=== PATIENT | female | born 1995 | race Caucasian/White ===

== ENCOUNTER 2017-01-08 22:12 | Emergency (ER) | payer BC | END 2017-01-08 22:52 | disposition left against medical advice (07) | LOC: DL.ED 22:12 | DX: Z53.21 Procedure and treatment not carried out due to patient leaving prior to being seen by health care provider (principal) ==

== ENCOUNTER 2017-03-25 19:17 | Emergency (ER) | payer BC | END 2017-03-25 20:55 | disposition left against medical advice (07) | LOC: DL.ED 19:17 | DX: Z53.21 Procedure and treatment not carried out due to patient leaving prior to being seen by health care provider (principal) ==

== ENCOUNTER 2017-07-11 23:07 | Emergency (ER) | payer BC ==
[2017-07-11] MEDS ORDERED: Albuterol/Ipratropium 3.0-0.5 MG/3 ML Neb Soln NEB ONE (23:17)
--- NOTE | 2017-07-11 23:21 | EDM.PDOC ---
ED HPI GENERAL MEDICAL PROBLEM - General Chief Complaint: Respiratory Problem Stated Complaint: COUGH AND PRESSURE ON CHEST [id number] Time Seen by Provider: 07/11/17 23:16 Source of Information: Reports: Patient, Family (boyfriend) History Limitations: Reports: No Limitations - History of Present Illness INITIAL COMMENTS - FREE TEXT/NARRATIVE: 22 yo white female c/o chest congestion w/ cough X 4 days w/ chills Onset Date: 07/08/17 Onset Time: 12:00 Duration: Day(s): Location: Reports: Chest Severity: Moderate Improves with: Reports: None Worsens with: Reports: Breathing Associated Symptoms: Reports: Cough - Related Data Allergies Allergy/AdvReac Type Severity Reaction Status Date / Time No Known Allergies Allergy Verified 07/11/17 23:13 Home Meds: Home Meds Ibuprofen [Motrin] 400 mg PO ASDIRECTED PRN 09/06/14 [History] Past Medical History - Past Health History Medical/Surgical History: Denies Medical/Surgical History HEENT History: Reports: Impaired Vision Cardiovascular History: Reports: None Respiratory History: Reports: None Gastrointestinal History: Reports: None Genitourinary History: Reports: None BIAZZI NITRATOR OPERATOR History: Reports: Other (See Below) Other OB/BYN History: questionable Musculoskeletal History: Reports: None Other Musculoskeletal History: broken lebow rt. Neurological History: Reports: None Psychiatric History: Reports: None Endocrine/Metabolic History: Reports: None Hematologic History: Reports: None Immunologic History: Reports: None Oncologic (Cancer) History: Reports: None Dermatologic History: Reports: None - Infectious Disease History Infectious Disease History: Reports: None - Past Surgical History Head Surgeries/Procedures: Reports: None HEENT Surgical History: Reports: Tonsillectomy Social & Family History - Family History Family Medical History: Noncontributory - Tobacco Use Smoking Status *Q: Never Smoker Years of Tobacco use: 1 Used Tobacco, but Quit: No Month Tobacco Last Used: september Hand Smoke Exposure: Yes - Alcohol Use Days Per Week of Alcohol Use: 1 Number of Drinks Per Day: 2 Total Drinks Per Week: 2 - Recreational Drug Use Recreational Drug Use: No - Living Situation & Occupation Living situation: Reports: with Family Occupation: Employed ED ROS GENERAL - Review of Systems Review Of Systems: See Below Constitutional: Reports: No Symptoms HEENT: Reports: No Symptoms Respiratory: Reports: Cough Cardiovascular: Reports: No Symptoms Endocrine: Reports: No Symptoms GI/Abdominal: Reports: No Symptoms : Reports: No Symptoms Musculoskeletal: Reports: No Symptoms Skin: Reports: No Symptoms Neurological: Reports: No Symptoms Psychiatric: Reports: No Symptoms Hematologic/Lymphatic: Reports: No Symptoms Immunologic: Reports: No Symptoms ED EXAM, GENERAL - Physical Exam Exam: See Below Exam Limited By: No Limitations General Appearance: Alert Ears: Normal External Exam Nose: Normal Inspection Throat/Mouth: Normal Inspection Head: Atraumatic Neck: Normal Inspection Respiratory/Chest: No Respiratory Distress, Rhonchi Cardiovascular: Normal Peripheral Pulses Extremities: Normal Inspection Neurological: Alert Psychiatric: Normal Affect Skin Exam: Warm Lymphatic: No Adenopathy Course - Vital Signs Last Recorded V/S: Last Vital Signs Temp 36.2 C 07/11/17 23:08 Pulse 92 07/11/17 23:28 Resp 18 07/11/17 23:28 BP 115/72 07/11/17 23:28 Pulse Ox 100 07/11/17 23:28 - Orders/Labs/Meds Orders: Active Orders 24 hr Category Date Time Status RT Aerosol Therapy [RC] ASDIRECTED Care 07/11/17 23:17 Active Labs: Laboratory Tests 07/11/17 07/11/17 07/11/17 Range/Units 23:14 23:25 23:25 WBC 7.8 (5.0-10.0) 10^3/uL RBC 4.47 (4.2-5.4) 10^6/uL Hgb 13.1 (12.0-16.0) g/dL Hct 39.8 (37.0-47.0) % MCV 89.0 (80-100) fL MCH 29.3 (27.0-34.0) pg MCHC 32.9 L (33.0-35.0) g/dL Plt Count 345 (150-450) 10^3/uL Neut % (Auto) 63.3 (42.2-75.2) % Lymph % (Auto) 24.9 (20.5-50.1) % [place] % (Auto) 9.1 H (2-8) % Eos % (Auto) 2.4 (1.0-3.0) % Baso % (Auto) 0.3 (0.0-1.0) % Lactic Acid 0.5 (0.5-2.2) mmol/L Urine HCG, Qual Negative Meds: Medications Discontinued Medications Generic Name Dose Route Start Last Admin Trade Name Effie PRN Reason Stop Dose Admin Albuterol/Ipratropium 3 ml 07/11/17 23:17 07/11/17 23:23 Duoneb 3.0-0.5 Mg/3 Ml NEB 07/11/17 23:18 3 ml ONETIME ONE Administration Departure - Departure Time of Disposition: 00:01 Disposition: Home, Self-Care 01 Condition: Good Clinical Impression: URI (upper respiratory infection) Qualifiers: URI type: unspecified viral URI Qualified Code(s): J06.9 - Acute upper respiratory infection, unspecified; B97.89 - Other viral agents as the cause of diseases classified elsewhere; B97.89 - Other viral agents as the cause of diseases classified elsewhere - Discharge Information Instructions: Upper Respiratory Infection, Adult, Lggu-[id number] Forms: ED Department Discharge Additional Instructions: Rest Increase intake of Fluids ( Juice / Water ) Take Medication as directed: PHENERGAN PLAIN 2TSP q 4HRS. # 4oz. as needed PRO AIR MDI 2 puffs QID as needed #1 Try Vics Vaporizer in bedroom F/U w/ PCP - My Orders Last 24 Hours: My Active Orders 07/11/17 23:17 RT Aerosol Therapy [RC] ASDIRECTED - Assessment/Plan Last 24 Hours: My Active Orders 07/11/17 23:17 RT Aerosol Therapy [RC] ASDIRECTED
[2017-07-11 23:31] VITALS: BP 115/72
== END 2017-07-12 00:07 | disposition home or self-care (01) ==
LOC: DL.ED 23:07
DX: J06.9 Acute upper respiratory infection, unspecified (principal); Z77.22 Contact with and (suspected) exposure to environmental tobacco smoke (acute) (chronic)
CPT/HCPCS: 36415; 71020; 81025; 83605; 85025; 94640; 99284

== ENCOUNTER 2018-10-09 22:17 | Emergency (ER) | payer BC ==
[2018-10-09 22:26] VITALS: BP 131/64
[2018-10-09] MEDS ORDERED: Sodium Chloride 0.9% 1,000 ML IV ONE (22:29)
--- NOTE | 2018-10-09 22:40 | EDM.PDOC ---
ED HPI GENERAL MEDICAL PROBLEM - General Chief Complaint: Gastrointestinal Problem Stated Complaint: THROWING UP BLOOD 20 WEEKS PREGNENT Time Seen by Provider: 10/09/18 22:32 Source of Information: Reports: Patient History Limitations: Reports: No Limitations - History of Present Illness INITIAL COMMENTS - FREE TEXT/NARRATIVE: This 23 yo female patient reports to the ED due to having 1 episode of nausea and vomiting. The patient reports there was bright red blood in the vomit. The patient is currently 20 weeks into her . The patient reports no nausea at this time. The patient reports she normally feels fine after she throws up. The patient states she has not been ill lately. The patient reports she did eat [employer] about 2 hours prior to throwing up. Onset: Today Duration: Minutes:, Resolved Prior to Arrival Location: Reports: Other Quality: Reports: Other Severity: Mild Improves with: Reports: None Worsens with: Reports: None Associated Symptoms: Reports: Nausea/Vomiting (x1) - Related Data Allergies Allergy/AdvReac Type Severity Reaction Status Date / Time No Known Allergies Allergy Verified 10/09/18 22:21 Home Meds: Home Meds Levothyroxine [Synthroid] 50 mcg PO ACBREAKFAST 09/07/18 [History] Vit #108/Iron/FA [ One Tablet] 1 each PO DAILY 09/07/18 [ History] Past Medical History - Past Health History Medical/Surgical History: Denies Medical/Surgical History HEENT History: Reports: Impaired Vision Cardiovascular History: Reports: None Respiratory History: Reports: None Gastrointestinal History: Reports: None Genitourinary History: Reports: None GATE OPERATOR History: Reports: Endometriosis, Other GATE OPERATOR History: questionable Musculoskeletal History: Reports: None Other Musculoskeletal History: broken lebow rt. Neurological History: Reports: None Psychiatric History: Reports: None Endocrine/Metabolic History: Reports: Hypothyroidism Hematologic History: Reports: None Immunologic History: Reports: None Oncologic (Cancer) History: Reports: None Dermatologic History: Reports: None - Infectious Disease History Infectious Disease History: Reports: None - Past Surgical History Head Surgeries/Procedures: Reports: None HEENT Surgical History: Reports: Adenoidectomy, Tonsillectomy Social & Family History - Family History Family Medical History: Noncontributory - Tobacco Use Smoking Status *Q: Never Smoker - Caffeine Use Caffeine Use: Reports: Soda - Recreational Drug Use Recreational Drug Use: No - Living Situation & Occupation Living situation: Reports: with Family Occupation: Employed ED ROS GENERAL - Review of Systems Review Of Systems: ROS reveals no pertinent complaints other than HPI. ED EXAM, GI/ABD - Physical Exam Exam: See Below Exam Limited By: No Limitations General Appearance: Alert, WD/WN, No Apparent Distress, Obese Eyes: Bilateral: Normal Appearance, EOMI Ears: Normal External Exam, Normal Canal, Hearing Grossly Normal, Normal TMs Nose: Normal Inspection, Normal Mucosa, No Blood Throat/Mouth: Normal Inspection, Normal Lips, Normal Teeth, Normal Gums, Normal Oropharynx, Normal Voice, No Airway Compromise Head: Atraumatic, Normocephalic Neck: Normal Inspection, Supple, Non-Tender, Full Range of Motion Respiratory/Chest: No Respiratory Distress, Lungs Clear, Normal Breath Sounds, No Accessory Muscle Use, Chest Non-Tender Cardiovascular: Normal Peripheral Pulses, Regular Rate, Rhythm, No Edema, No Gallop, No JVD, No Murmur, No Rub GI/Abdominal Exam: Normal Bowel Sounds, Soft, Non-Tender, No Organomegaly, No Distention, No Abnormal Bruit, No Mass, Pelvis Stable (Female) Exam: Deferred Rectal (Female) Exam: Deferred Back Exam: Normal Inspection, Full Range of Motion, NT Extremities: Normal Inspection, Normal Range of Motion, Non-Tender, Normal Capillary Refill, No Pedal Edema Neurological: Alert, Oriented, CN II-XII Intact, Normal Cognition, Normal Gait, Normal Reflexes, No Motor/Sensory Deficits Psychiatric: Normal Affect, Normal Mood Skin Exam: Warm, Dry, Intact, Normal Color, No Rash Lymphatic: No Adenopathy Course - Vital Signs Last Recorded V/S: Last Vital Signs Temp 36.1 C 10/09/18 22:22 Pulse 90 10/09/18 22:22 Resp 18 10/09/18 22:22 BP 131/64 10/09/18 22:22 Pulse Ox 100 10/09/18 22:22 - Orders/Labs/Meds Orders: Active Orders 24 hr Category Date Time Status CULTURE URINE [RM] Urgent Lab 10/09/18 22:33 Received Sodium Chloride 0.9% [Normal Saline] 1,000 ml Med 10/09/18 22:29 Active IV .BOLUS Medication Orders Sodium Chloride (Normal Saline) 1,000 mls @ 999 mls/hr IV .BOLUS ONE Stop: 10/09/18 23:29 Last Admin: 10/09/18 22:43 Dose: 999 mls/hr Labs: Laboratory Tests 10/09/18 10/09/18 10/09/18 Range/Units 22:33 22:41 22:41 WBC 9.7 (5.0-10.0) 10^3/uL RBC 3.40 L (4.2-5.4) 10^6/uL Hgb 10.5 L D (12.0-16.0) g/dL Hct 31.2 L (37.0-47.0) % MCV 91.8 D (80-100) fL MCH 30.9 (27.0-34.0) pg MCHC 33.7 (33.0-35.0) g/dL Plt Count 310 (150-450) 10^3/uL Neut % (Auto) 73.1 (42.2-75.2) % Lymph % (Auto) 18.6 L (20.5-50.1) % [place] % (Auto) 6.7 (2-8) % Eos % (Auto) 1.5 (1.0-3.0) % Baso % (Auto) 0.1 (0.0-1.0) % Sodium (135-145) mmol/L Potassium (3.6-5.0) mmol/L Chloride (101-111) mmol/L Carbon Dioxide (21.0-31.0) mmol/L Anion Gap BUN (7-18) mg/dL Creatinine (0.6-1.3) mg/dL Est Cr Clr Drug Dosing mL/min Estimated GFR (MDRD) BUN/Creatinine Ratio Glucose (74-105) mg/dL Calcium (8.4-10.2) mg/dl Total Bilirubin (0.2-1.0) mg/dL AST (10-42) IU/L ALT (10-60) IU/L Alkaline Phosphatase (42-121) IU/L Total Protein (6.7-8.2) g/dl Albumin (3.2-5.5) g/dl Globulin Albumin/Globulin Ratio HCG, Quant > 1397.0 Beta HCG, Quant 34464 mIU/ml Urine Color Yellow (YELLOW) Urine Appearance Cloudy (CLEAR) Urine pH 6.0 (5.0-9.0) Ur Specific [place] >= 1.030 (1.005-1.030) Urine Protein Trace H (NEGATIVE) Urine Glucose (UA) Negative (NEGATIVE) Urine Ketones Trace H (NEGATIVE) Urine Occult Blood Negative (NEGATIVE) Urine Nitrite Negative (NEGATIVE) Urine Bilirubin Negative (NEGATIVE) Urine Urobilinogen 2.0 H (0.2-1.0) mg/dL Ur Leukocyte Esterase Trace H (NEGATIVE) Urine RBC 0-5 /HPF Urine WBC 10-20 H (0-5/HPF) /HPF Ur Epithelial Cells Many H /HPF Amorphous Sediment Few (0/HPF) /HPF Urine Bacteria Many H (0-FEW/HPF) /HPF Urine Mucus Few H /LPF 10/09/18 Range/Units 22:41 WBC (5.0-10.0) 10^3/uL RBC (4.2-5.4) 10^6/uL Hgb (12.0-16.0) g/dL Hct (37.0-47.0) % MCV (80-100) fL MCH (27.0-34.0) pg MCHC (33.0-35.0) g/dL Plt Count (150-450) 10^3/uL Neut % (Auto) (42.2-75.2) % Lymph % (Auto) (20.5-50.1) % [place] % (Auto) (2-8) % Eos % (Auto) (1.0-3.0) % Baso % (Auto) (0.0-1.0) % Sodium 135 (135-145) mmol/L Potassium 3.5 L (3.6-5.0) mmol/L Chloride 105 (101-111) mmol/L Carbon Dioxide 21.0 (21.0-31.0) mmol/L Anion Gap 12.5 BUN 14 (7-18) mg/dL Creatinine 0.5 L (0.6-1.3) mg/dL Est Cr Clr Drug Dosing 151.11 mL/min Estimated GFR (MDRD) > 60 BUN/Creatinine Ratio 28.00 Glucose 92 (74-105) mg/dL Calcium 8.6 (8.4-10.2) mg/dl Total Bilirubin 0.4 (0.2-1.0) mg/dL AST 18 (10-42) IU/L ALT 20 (10-60) IU/L Alkaline Phosphatase 52 (42-121) IU/L Total Protein 6.6 L (6.7-8.2) g/dl Albumin 3.2 (3.2-5.5) g/dl Globulin 3.4 Albumin/Globulin Ratio 0.94 HCG, Quant Beta HCG, Quant mIU/ml Urine Color (YELLOW) Urine Appearance (CLEAR) Urine pH (5.0-9.0) Ur Specific [place] (1.005-1.030) Urine Protein (NEGATIVE) Urine Glucose (UA) (NEGATIVE) Urine Ketones (NEGATIVE) Urine Occult Blood (NEGATIVE) Urine Nitrite (NEGATIVE) Urine Bilirubin (NEGATIVE) Urine Urobilinogen (0.2-1.0) mg/dL Ur Leukocyte Esterase (NEGATIVE) Urine RBC /HPF Urine WBC (0-5/HPF) /HPF Ur Epithelial Cells /HPF Amorphous Sediment (0/HPF) /HPF Urine Bacteria (0-FEW/HPF) /HPF Urine Mucus /LPF Meds: Medications Generic Name Dose Route Start Last Admin Trade Name Freq PRN Reason Stop Dose Admin Sodium Chloride 1,000 mls @ 999 mls/hr 10/09/18 22:29 10/09/18 22:43 Normal Saline IV 10/09/18 23:29 999 mls/hr .BOLUS ONE Administration Departure - Departure Time of Disposition: 23:28 Disposition: Home, Self-Care 01 Condition: Fair Clinical Impression: Gastroenteritis - Discharge Information *PRESCRIPTION DRUG MONITORING PROGRAM REVIEWED*: Not Applicable *COPY OF PRESCRIPTION DRUG MONITORING REPORT IN PATIENT NAIF: Not Applicable Instructions: Viral Gastroenteritis, Adult, [id number] Forms: ED Department Discharge Care Plan Goals: The patient was advised of the examination and lab results during the visit. The patient was advised that her hemoglobin was a little low at this time. The patient was encouraged to follow-up with her primary care facility for continued monitoring. If the patient has any additional symptoms or concerns, the patient should either return to the emergency department or visit her primary care facility. - My Orders Last 24 Hours: My Active Orders 10/09/18 22:29 Sodium Chloride 0.9% [Normal Saline] 1,000 ml IV .BOLUS 10/09/18 22:33 CULTURE URINE [RM] Urgent - Assessment/Plan Last 24 Hours: My Active Orders 10/09/18 22:29 Sodium Chloride 0.9% [Normal Saline] 1,000 ml IV .BOLUS 10/09/18 22:33 CULTURE URINE [] Urgent
[2018-10-09 23:17] LABS: ANION GAP 12.5; CHLORIDE,CL 105 mmol/L (101-111); SODIUM,NA 135 mmol/L (135-145)
== END 2018-10-09 23:33 | disposition home or self-care (01) ==
LOC: DL.ED 22:17
DX: K52.9 Noninfective gastroenteritis and colitis, unspecified (principal)
CPT/HCPCS: 36415; 80053; 81001; 84702; 85025; 87086; 96360; 99284; J7030

== ENCOUNTER 2019-02-22 10:45 | Inpatient (IN) | payer BC, MEDICAID ==
[2019-02-22] MEDS ORDERED: Misoprostol 50 MCG (1/2 of 100 MCG) Tab VAG ONE (12:07)
[2019-02-22] MEDS ORDERED: Lactated Ringers 500 ML IV ONE (12:41)
[2019-02-22] MEDS ORDERED: Ondansetron 4 MG/2 ML SDV IV PRN (12:41)
[2019-02-22] MEDS ORDERED: Methylergonovine 0.2 MG/1 ML Amp IM PRN (12:41)
[2019-02-22] MEDS ORDERED: Carboprost Tromethamine 250 MCG/1 ML Amp IM PRN (12:41)
[2019-02-22] MEDS ORDERED: Promethazine 25 MG/ML SDV IM PRN (12:41)
[2019-02-22] MEDS ORDERED: Tranexamic Acid 1,000 MG in Sodium Chloride 0.9% 100 ML IV PRN (12:41)
[2019-02-22] MEDS ORDERED: Sodium Chloride 0.9% 10 ML Syringe FLUSH PRN (12:41)
[2019-02-22] MEDS ORDERED: fentaNYL 100 MCG/2 ML SDV IVPUSH PRN (12:41)
[2019-02-22] MEDS ORDERED: Lidocaine 1% 30 ML SDV INJECT PRN (12:41)
[2019-02-22] MEDS ORDERED: Misoprostol 400 MCG (4 X 100 MCG TAB) RECTAL PRN (12:41)
[2019-02-22] MEDS ORDERED: Misoprostol 25 MCG (1/4 of 100 MCG) Tab PO ONE (12:45)
[2019-02-22] MEDS: Misoprostol 25 MCG (1/4 of 100 MCG) Tab VAG PRN ×2 (13:16→17:23)
--- NOTE | 2019-02-22 17:28 | HP ---
CHIEF COMPLAINT: Nausea, increased edema. HISTORY OF PRESENT ILLNESS: The patient is a 24-year-old 1, para 0, currently at 39 and 3/7th weeks' gestation based on last menstrual period confirmed with ultrasound, who presented to the clinic today complaining of nausea for 3 days, having difficulty keeping much of anything down, noticed increased swelling when she is up, but this does resolve when she lays on her left side and elevates her feet. Denies any headaches, chest pain, shortness of breath, right upper quadrant pain, decreased urine output, or blurry vision. She has been very concerned often on this with potential of preeclampsia and now is presenting with some increased symptoms. Denies any regular contractions. Has had good movement. No further vaginal bleeding or leakage of fluid. Previously, she had some small amounts of mucousy discharge. PAST MEDICAL HISTORY: 1. Adolescent dysmenorrhea, on control pills for short time. 2. Supracondylar fracture, left elbow, in 2001. 3. Depression, starting in 2010. 4. IUD, inserted, replaced, and then removed because of side effects. 5. Tattoo on her neck and ears are pierced. No IV drug use or transfusions. 6. Vitamin D deficiency. OBSTETRICAL HISTORY: This is her first . labs overall have been good and unremarkable. Blood type is AB positive. She is rubella immune. Hepatitis B, hepatitis C, HIV, gonorrhea and chlamydia were all negative. Wet prep was negative. TSH has been consistent with subclinical hypothyroidism. Most recent TSH 3.99 at which time her Levothroid was increased. She is group B strep negative. She passed her 1-hour glucose tolerance test with a score of 107. ULTRASOUNDS: First one performed 11 weeks' 5 days' gestation at [facility], single live intrauterine consistent with last menstrual period. Next ultrasound performed baby measured 20 weeks 2 days. This was within 4 days of her working due date. Baby was breech, anterior placenta, normal anatomy, and growth at the 64.9th percentile. PAST SURGICAL HISTORY: Tonsillectomy and adenoidectomy in 1996, PE tube placement in 1996 and PE tube removal in 2002 with tympanic membrane patching on the right. FAMILY HISTORY: Mother is alive with heart disease, high cholesterol, hypertension, and sleep apnea. Father is alive with hypertension, high cholesterol, diabetes, and heart disease. She has 2 half sisters with no known diseases. She has a brother with hypertension. Both paternal grandparents have had heart attacks. Both maternal grandparents are alive and well. SOCIAL HISTORY: The patient has never smoked. She is working at [employer] and at [employer]. Her works at the [employer]. His name is Sherif and he has alopecia areata as well as some sort of an autoimmune disease and his sister has a history of kidney infections as a child. His brother is healthy. His father has asthma, severe anxiety, sleep apnea, and his mother had thyroid disease. Otherwise, their family histories are reportedly negative. Mother does plan on . REVIEW OF SYSTEMS: As outlined above in the history of present illness. PHYSICAL EXAMINATION: Vital Signs: At the clinic today, the patient's blood pressure is 146/84, recheck 123/105, currently admission blood pressure 140/77, recheck after resting 134/67; pulse of 75; she is afebrile; temperature is 98.2; respiratory rate is 20. HEENT: Head is normocephalic, atraumatic. Mouth, mucous membranes are pink and moist. Thick calculus on the teeth. Gingiva are inflamed and irritated. Oropharynx is clear. Neck: Supple without adenopathy. Heart: Regular without murmur. Lungs: Clear to auscultation bilaterally. Abdomen: Gravid, soft, nontender. Baby palpates at vertex. Fundal height of 38 cm. heart tones tracing at 130 beats per minute at baseline. Moderate [id number]-[id number] variability. Limited accelerations. No decelerations noted. [place] shows no uterine activity. Extremities: 1+ edema. No erythema or tenderness. Reflexes are 2+ and equal. There is no clonus. Skin: Warm and dry. Appropriate for race. Neurological: No focal deficits. LABORATORY DATA: Labs performed today at the clinic: Protein-creatinine ratio of 0.3. LDH 160. BUN 10, creatinine 0.8, AST 15, ALT 16. CBC, hemoglobin was 13.4, hematocrit 39, platelets 319, overall normal. TSH is pending. ASSESSMENT: 1. A 39 and 3/7th weeks' intrauterine . 2. Mild preeclampsia, suspected to be early in its development. 3. Obesity. 4. Blood type AB positive. Rubella immune. Group B strep negative. 5. History of urinary tract infection in the third trimester. 6. Subclinical hypothyroidism. PLAN: The patient has been admitted to the hospital for Cytotec induction primarily because baby's tracing is reassuring but nonreactive and mother is displaying symptoms of mild preeclampsia despite blood pressure is not remaining consistently elevated. Discussed risks and benefits of induction of labor for these indications with the patient and her and they agreed to proceed. First dose of Cytotec has been placed and she is tolerating things well. Discussed with her potential for need of section and she was verbally consented for that procedure as well after discussion of indications, risks, benefits, and alternatives and although this is something we would want to avoid, she understands it may be necessary if any maternal or factors should develop. [facility] /[id number]
[2019-02-22] MEDS ORDERED: hydrOXYzine HCl 25 MG Tab PO PRN (20:10)
[2019-02-23] MEDS ORDERED: hydrOXYzine HCl 25 MG Tab PO ONE (00:23)
[2019-02-23] MEDS: Lactated Ringers 1,000 ML IV SCH ×4 (00:38→15:08)
[2019-02-23] MEDS: Oxytocin/Normal Saline 30 UNIT/500 ML BAG IV SCH ×2 (00:38→11:25)
[2019-02-23] MEDS: Acetaminophen 325 MG Tab PO PRN (00:46)
[2019-02-23] MEDS ORDERED: fentaNYL 100 MCG/2 ML SDV ONE (07:46)
[2019-02-23] MEDS ORDERED: EPINEPHrine 1 MG/ML SDV ONE (07:46)
[2019-02-23] MEDS ORDERED: Sodium Bicarbonate 4.2% 2.5 MEQ/5 ML SDV ONE (07:47)
--- NOTE | 2019-02-23 08:13 | PCM.SN ---
- Free Text/Narrative Note: Intrathecal. Sitting position, sterile prep and drape. 1% lidocaine w bicarb for skinwheal to L2 L3 interspace x 2, Introducer and 24 ga Pencan x2. Pos CSF, neg heme, neg parasthesia, 0.1 ml PF 1:1000 Epi, 20 mcg sufenta, 30 mcg pf fentanyl, 0.4 ml pf ns and 6 mg of 0.75% pf bupivacaine injected after CSF aspiration. Pt to L lateral position. Procedure time 0750 to 0820
[2019-02-23] MEDS ORDERED: Simethicone 80 MG Tab.Chew PO PRN (10:04)
[2019-02-23] MEDS ORDERED: Benzocaine/Menthol 20%-0.5% Spray 56 GM Canister TOP PRN (10:04)
[2019-02-23] MEDS: Ibuprofen 800 MG Tab PO PRN (14:58)
--- NOTE | 2019-02-23 16:05 | DEL ---
DATE: 02/23/2019 PREPROCEDURE DIAGNOSES: 1. 39 and 4/7 weeks' intrauterine . 2. Mild preeclampsia. 3. Obesity. 4. Blood type A positive, rubella immune, group B Strep negative. 5. Subclinical hypothyroidism. 6. History of urinary tract infection in the third trimester. 7. Meconium-stained fluid. 8. bradycardia. POSTPROCEDURE DIAGNOSES: 1. 39 and 4/7 weeks' intrauterine . 2. Mild preeclampsia. 3. Obesity. 4. Blood type A positive, rubella immune, group B Strep negative. 5. Subclinical hypothyroidism. 6. History of urinary tract infection in the third trimester. 7. Meconium-stained fluid. 8. bradycardia. 9. Status post vacuum-assisted vaginal delivery. 10.Repair of second-degree vaginal laceration. 11.Uterine atony, resolved with increased Pitocin and bimanual massage of the uterus. BRIEF HISTORY: A 24-year-old, 1, para 0 female patient with the above- listed diagnoses, presented to the hospital yesterday for further evaluation of her mild preeclampsia and was admitted for Cytotec induction followed by Pitocin. Blood pressures were well controlled when she was at rest, but would go up any time she was allowed to ambulate. See admission history and physical for additional details. After the first 2 doses of Cytotec, she was natalie frequently enough that she needed to be followed with IV Pitocin. After reaching 5 cm dilated, she had spontaneous rupture of membranes around 6:00 in the morning. After that, intrathecal was administered at around 8:00 a.m. and shortly thereafter, she had developed some bradycardia and was found to be complete. I was called for delivery, and we had her pushing on her side in order to maintain, baby's heart rate recovery between contractions. With contractions and pushing, baby's heart rate would drop down into the 70s and 60s and was difficult to auscultate. When the patient was at +3 station, the heart tones were inadequately auscultated and with the known bradycardia, a decision was made to proceed with vacuum-assisted vaginal delivery. With first vacuum pull, there was 1 pop-off. Second vacuum pull resulted in delivery of the baby at 9:33 a.m. Baby did well with just stimulation and bulb suctioning and was quickly taken to the warmer. After the 3-vessel umbilical cord was doubly clamped and cut, cord blood sample was obtained and placenta delivered by gentle cord traction and concomitant uterine massage in less than 5 minutes. The bleeding from the uterus was somewhat brisk, so we turned the Pitocin up to 999 and bimanual massage was also administered with excellent control of her blood flow. Labia and vagina were inspected, and she had some anterior abrasions, which did not need any repair. She had a second-degree laceration, which was repaired with 3-0 Vicryl in the usual fashion and a good cosmetic result. Bleeding remained hemostatic, and the patient had tolerated the overall procedure well. Delivery itself with vacuum in place, the mother delivered a viable male infant over an intact perineum in the GIL position. was laid on the bed and mouth and nose bulb-suctioned, and he was dried and stimulated, and then taken over to the warmer after the 3-vessel umbilical cord was doubly clamped and cut due to appearing as though he may need more advanced resuscitation, but did perk up within the first 30 seconds. Vacuum Details: Alternate labor strategies were considered. The operating room was not immediately available. Second physician was aware of the patient being here and was ready to assist. The vacuum was needed to shorten the second stage of labor for benefit because of bradycardia and lack of auscultation of heart tones. The patient had been appropriately prepared. We had discussed with her the risks, benefits, and alternatives of vacuum extraction including, but not limited to increased risk of injury to her and the baby, potential for shoulder dystocia, potential for additional complications and other injuries, and she had verbally consented and agreed to proceed. Anesthesia was adequate, and she had only had her intrathecal placed about an hour and a half before. Her perineum was still numb. There was a high probability of success. Infant's size was estimated to be appropriate. She had an adequate pelvis and baby was in the OA position at 3+ station. Maximum number of pop-offs had been predetermined, we only had 1 during the actual delivery. Maximum pressure was in the green zone between 450 and 600 mmHg. Total application time was only about 3 minutes essentially through 1-1/2 contractions. Type of vacuum used was Kiwi. Exit strategy would have been made available, Anesthesia was in-house, but working on a different surgical case. The operating room was open. My other assist was available. Given the anesthesia being adequate for the intrathecal, we likely would have been able to proceed with a without additional anesthesia or possibly just some additional local, and there was no opportunity to wait because of the compromise anticipated. FINDINGS: Viable male infant, scores of 8 and 9, weight 7 pounds 7 ounces. Second-degree laceration, repaired. COMPLICATIONS: None. ESTIMATED BLOOD LOSS: 350 mL. DISPOSITION: Mother and baby to stay in the room and initiate at this time. [facility] /[id number]
[2019-02-24] MEDS: Ferrous Sulfate 325 MG Tab PO SCH (08:28)
[2019-02-24] MEDS: Prenatal Multivitamin with Calcium/Folic Acid/Iron Tab PO SCH (08:29)
[2019-02-24] MEDS: Ibuprofen 800 MG Tab PO PRN ×2 (08:30→17:38)
[2019-02-24] MEDS: Docusate Sodium 100 MG Cap PO PRN ×2 (08:30→21:07)
[2019-02-24] MEDS: Levothyroxine 125 MCG Tab PO SCH (08:43)
--- NOTE | 2019-02-24 09:03 | PN ---
DATE: 02/24/2019 SUBJECTIVE: Post delivery day #1. The patient is doing well. She is ambulating . She is voiding and passing flatus. Reporting some increased perineal pressure and pain at the repair site. seems to be going well. Otherwise, denies any problems. No preeclamptic symptoms. Blood flow has been appropriate. Uterus has remained firm per nurse's report. Mother denies any other issues. OBJECTIVE: Vital Signs: Temperature 99.3, pulse 83, blood pressure 123/68, and respiratory rate of 18. Heart: Regular without murmurs. Lungs: Clear to auscultation bilaterally. Abdomen: Soft and nontender. Fundus is firm and below the umbilicus. Extremities: Only trace edema at this time. No erythema or tenderness. LABS: Today's CBC is currently pending. ASSESSMENT: 1. Post vaginal delivery day #1. 2. Status post second-degree laceration repair. 3. Obesity. 4. Subclinical hypothyroidism with currently elevated TSH, and levothyroxine needs to be increased. PLAN: Anticipate continued normal cares. Continue to monitor for late preeclampsia symptoms and continue with assistance and any other needs. Anticipate discharge home tomorrow. Dr. Mas will see her tomorrow in my absence. [facility] /[id number]
[2019-02-24] MEDS ORDERED: Sodium Bicarbonate 4.2% 2.5 MEQ/5 ML SDV ONE (13:13)
[2019-02-24] MEDS ORDERED: EPINEPHrine 1 MG/ML SDV IV ONE (13:13)
[2019-02-24] MEDS ORDERED: fentaNYL 100 MCG/2 ML SDV ITHECAL ONE (13:13)
[2019-02-24] MEDS: Acetaminophen 325 MG Tab PO PRN ×2 (15:48→21:07)
[2019-02-25] MEDS: Ibuprofen 800 MG Tab PO PRN ×2 (01:11→08:30)
[2019-02-25] MEDS: Acetaminophen 325 MG Tab PO PRN ×2 (01:12→05:41)
[2019-02-25] MEDS: Levothyroxine 125 MCG Tab PO SCH (05:41)
[2019-02-25] MEDS: Prenatal Multivitamin with Calcium/Folic Acid/Iron Tab PO SCH (08:30)
[2019-02-25] MEDS: Ferrous Sulfate 325 MG Tab PO SCH (08:30)
[2019-02-25] MEDS: Docusate Sodium 100 MG Cap PO PRN (08:30)
[2019-02-25 08:36] VITALS: BP 130/72
--- NOTE | 2019-02-25 11:12 | PN ---
DATE: 02/25/2019 SUBJECTIVE: The patient is day #2 from a vacuum-assisted vaginal delivery. She did have mild preeclampsia. Protein creatinine ratio is 0.3. She also has hypothyroidism. This is her first baby. She and baby are both doing well. She states her vaginal bleeding has decreased significantly. PHYSICAL EXAMINATION: Vital Signs: The patient is afebrile. Heart rate 69 to 87, blood pressure 122 to 123/65 to 72, respiratory rate 18, O2 sat 100%. Genitourinary: The patient's fundus was firm, below the umbilicus. Extremities: Have no tenderness. No edema. LABORATORY DATA: The patient's blood type is AB positive. She is rubella immune. Hemoglobin prior to delivery was 13.4. CBC showed a hemoglobin of 10.2, platelets are normal at 218, and white count was normal at 9.7. ASSESSMENT AND PLAN: day #2, status post vacuum-assisted vaginal delivery with resolved mild preeclampsia. We will discharge this patient to home. She will follow up with her primary in 6 weeks for 6-week visit. Also continue her current Synthroid, and likely at her 6-week visit, another TSH will be checked. [facility] /[id number]
[2019-02-25] MEDS ORDERED: Ferrous Sulfate 325 MG Tab PO SCH (18:00)
[2019-02-26] MEDS ORDERED: Levothyroxine 100 MCG Tab PO SCH (06:00)
[2019-02-26] MEDS ORDERED: Prenatal Multivitamin with Calcium/Folic Acid/Iron Tab PO SCH (09:00)
== END 2019-02-25 10:49 | disposition home or self-care (01) | DRG 560 ==
LOC: DL.OBCHECK 10:45 → DL.OB 12:05 → UNDOADMOB 12:05 → DL.OB 02-23 09:33 → OBSVTOIN 02-23 09:33
PROVIDERS: ADMIT Family Medicine; ATTEND Family Medicine
PROC: 10D07Z6 Extraction of Products of Conception, Vacuum, Via Natural or Artificial Opening (ICD-10-PCS; principal; 2019-02-23)
PROC: 3E0P7VZ Introduction of Hormone into Female Reproductive, Via Natural or Artificial Opening (ICD-10-PCS; 2019-02-23)
PROC: 3E0R3BZ Introduction of Anesthetic Agent into Spinal Canal, Percutaneous Approach (ICD-10-PCS; 2019-02-23)
PROC: 0KQM0ZZ Repair Perineum Muscle, Open Approach (ICD-10-PCS; 2019-02-23)
DX: O14.04 Mild to moderate pre-eclampsia, complicating childbirth (principal); O99.214 Obesity complicating childbirth; E66.9 Obesity, unspecified; E02 Subclinical iodine-deficiency hypothyroidism; O99.284 Endocrine, nutritional and metabolic diseases complicating childbirth; O70.1 Second degree perineal laceration during delivery; Z3A.39 39 weeks gestation of pregnancy; Z37.0 Single live birth; O77.0 Labor and delivery complicated by meconium in amniotic fluid
CPT/HCPCS: 36415; 59025; 59409; 85027; A9270-GY; J0171; J2405; J2590; J3010; J7120

== ENCOUNTER 2019-03-01 22:36 | Observation (INO) | payer BC, MEDICAID ==
[2019-03-01 23:27] LABS: ANION GAP 14.6; CHLORIDE,CL 107 mmol/L (101-111); SODIUM,NA 137 mmol/L (135-145)
[2019-03-01] MEDS ORDERED: hydrALAZINE 20 MG/ML SDV IVPUSH ONE (23:34)
[2019-03-01] MEDS ORDERED: Acetaminophen 325 MG Tab PO ONE (23:52)
--- NOTE | 2019-03-02 00:16 | EDM.PDOC ---
ED HPI GENERAL MEDICAL PROBLEM - General Chief Complaint: Cardiovascular Problem Stated Complaint: BLOOD PRESSURE HIGH Time Seen by Provider: 03/01/19 22:55 Source of Information: Reports: Patient History Limitations: Reports: No Limitations - History of Present Illness INITIAL COMMENTS - FREE TEXT/NARRATIVE: ED with c/o headache, high blood pressure and light sensitive. Recent delivery . "mild pre eclampsia during ." No blurring of vision. Tried Ibuprofen this am and again at 2230 without relief. Swelling of legs and feet improving since delivery. No fever or chills. Some headache 3rd trimester in back of neck. Today headache frontal area. No nausea or vomiting. 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 Frontal Headache Pain Score (Numeric/FACES): 5 - Related Data Allergies Allergy/AdvReac Type Severity Reaction Status Date / Time No Known Allergies Allergy Verified 03/02/19 01:11 Home Meds: Home Meds Levothyroxine [Synthroid] 125 mcg PO ACBREAKFAST 09/07/18 [History] Ferrous Sulfate 1 tab PO BIDMEALS 01/03/19 [History] Vit with Ca/FA/Iron [ Plus Iron] 1 tab PO DAILY 01/03/19 [ History] Past Medical History - Past Health History Medical/Surgical History: Denies Medical/Surgical History HEENT History: Reports: Impaired Vision Cardiovascular History: Reports: None Respiratory History: Reports: None Gastrointestinal History: Reports: Other (See Below) Other Gastrointestinal History: nausea and vomiting with Genitourinary History: Reports: None 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: Reports: Endometriosis, Other 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: questionable Musculoskeletal History: Reports: Fracture, Other (See Below) Other Musculoskeletal History: fracture 2002 elbow Neurological History: Reports: None Psychiatric History: Reports: None Endocrine/Metabolic History: Reports: Hypothyroidism Hematologic History: Reports: None Immunologic History: Reports: None Oncologic (Cancer) History: Reports: None Dermatologic History: Reports: None - Infectious Disease History Infectious Disease History: Reports: None - Past Surgical History Head Surgeries/Procedures: Reports: None HEENT Surgical History: Reports: Adenoidectomy, Tonsillectomy GI Surgical History: Reports: None Social & Family History - Family History Family Medical History: Noncontributory - Tobacco Use Smoking Status *Q: Never Smoker Second Hand Smoke Exposure: No - Caffeine Use Caffeine Use: Reports: Soda - Recreational Drug Use Recreational Drug Use: No - Living Situation & Occupation Living situation: Reports: with Family Occupation: Employed ED ROS GENERAL - Review of Systems Review Of Systems: ROS reveals no pertinent complaints other than HPI. ED EXAM, GENERAL - Physical Exam Exam: See Below Exam Limited By: No Limitations General Appearance: Alert, Mild Distress Eye Exam: Bilateral Eye: EOMI, PERRL Ears: Normal External Exam, Hearing Grossly Normal Nose: Normal Inspection Throat/Mouth: Normal Inspection Head: Atraumatic, Normocephalic, Other (ethmoid tenderness) Neck: Normal Inspection, Full Range of Motion. No: Lymphadenopathy (L), Lymphadenopathy (R), Thyromegaly Respiratory/Chest: No Respiratory Distress, Lungs Clear, Normal Breath Sounds Cardiovascular: Normal Peripheral Pulses, Regular Rate, Rhythm GI/Abdominal: Normal Bowel Sounds, Soft Back Exam: Normal Inspection, Full Range of Motion Extremities: Normal Inspection, Pedal Edema (1+) Neurological: Alert, Oriented, Normal Cognition, Normal Gait Psychiatric: Normal Affect, Normal Mood Skin Exam: Warm, Dry, Intact, Normal Color, No Rash Course - Vital Signs Last Recorded V/S: Last Vital Signs Temp 97.8 F 03/02/19 00:30 Pulse 65 03/02/19 04:51 Resp 20 03/02/19 00:30 BP 123/81 03/02/19 04:51 Pulse Ox 100 03/02/19 00:30 - Orders/Labs/Meds Orders: Active Orders 24 hr Category Date Time Status CULTURE URINE [RM] Routine Lab 03/01/19 22:56 Received Medication Orders Acetaminophen (Tylenol) 650 mg PO Q6H PRN PRN Reason: Pain Labetalol HCl (Normodyne) 100 mg PO BID@0500,1700 [facility] Last Admin: 03/02/19 04:51 Dose: Not Given Levothyroxine Sodium (Levothyroxine) 125 mcg PO ACBREAKFAST [facility] Labs: Laboratory Tests 03/01/19 03/01/19 03/01/19 Range/Units 22:58 22:58 23:02 WBC 9.8 (5.0-10.0) 10^3/uL RBC 3.89 L (4.2-5.4) 10^6/uL Hgb 12.1 D (12.0-16.0) g/dL Hct 36.7 L (37.0-47.0) % MCV 94.3 (80-100) fL MCH 31.1 (27.0-34.0) pg MCHC 33.0 (33.0-35.0) g/dL Plt Count 392 D (150-450) 10^3/uL Neut % (Auto) 67.1 (42.2-75.2) % Lymph % (Auto) 24.3 (20.5-50.1) % [place] % (Auto) 6.8 (2-8) % Eos % (Auto) 1.6 (1.0-3.0) % Baso % (Auto) 0.2 (0.0-1.0) % Sodium (135-145) mmol/L Potassium (3.6-5.0) mmol/L Chloride (101-111) mmol/L Carbon Dioxide (21.0-31.0) mmol/L Anion Gap BUN (7-18) mg/dL Creatinine (0.6-1.3) mg/dL Est Cr Clr Drug Dosing mL/min Estimated GFR (MDRD) BUN/Creatinine Ratio Glucose (74-105) mg/dL Calcium (8.4-10.2) mg/dl Magnesium (1.8-2.5) mg/dL Total Bilirubin (0.2-1.0) mg/dL AST (10-42) IU/L ALT (10-60) IU/L Alkaline Phosphatase (42-121) IU/L Total Protein (6.7-8.2) g/dl Albumin (3.2-5.5) g/dl Globulin Albumin/Globulin Ratio Urine Color Dark yellow (YELLOW) Urine Appearance Slightly cloudy (CLEAR) Urine pH 6.0 (5.0-9.0) Ur Specific [place] 1.025 (1.005-1.030) Urine Protein 100 H (NEGATIVE) Urine Glucose (UA) Negative (NEGATIVE) Urine Ketones Negative (NEGATIVE) Urine Occult Blood Large H (NEGATIVE) Urine Nitrite Negative (NEGATIVE) Urine Bilirubin Negative (NEGATIVE) Urine Urobilinogen 1.0 (0.2-1.0) mg/dL Ur Leukocyte Esterase Small H (NEGATIVE) Urine RBC >100 H /HPF Urine WBC >100 H (0-5/HPF) /HPF Ur Epithelial Cells Few (NOT SEEN) /HPF Urine Bacteria Moderate H (0-FEW/HPF) /HPF Urine Mucus Few H (NOT SEEN) /LPF Ur Random Creatinine 176 mg/dL U Random Total Protein 60 H (0.00-9.9) mg/dL Protein/Creatinin Ratio 0.34 // Range/Units 23:02 WBC (5.0-10.0) 10^3/uL RBC (4.2-5.4) 10^6/uL Hgb (12.0-16.0) g/dL Hct (37.0-47.0) % MCV (80-100) fL MCH (27.0-34.0) pg MCHC (33.0-35.0) g/dL Plt Count (150-450) 10^3/uL Neut % (Auto) (42.2-75.2) % Lymph % (Auto) (20.5-50.1) % [place] % (Auto) (2-8) % Eos % (Auto) (1.0-3.0) % Baso % (Auto) (0.0-1.0) % Sodium 137 (135-145) mmol/L Potassium 3.6 (3.6-5.0) mmol/L Chloride 107 (101-111) mmol/L Carbon Dioxide 19.0 L (21.0-31.0) mmol/L Anion Gap 14.6 BUN 16 (7-18) mg/dL Creatinine 0.7 (0.6-1.3) mg/dL Est Cr Clr Drug Dosing 107.01 mL/min Estimated GFR (MDRD) > 60 BUN/Creatinine Ratio 22.85 Glucose 83 (74-105) mg/dL Calcium 8.9 (8.4-10.2) mg/dl Magnesium 2.0 (1.8-2.5) mg/dL Total Bilirubin 0.4 (0.2-1.0) mg/dL AST 18 (10-42) IU/L ALT 24 (10-60) IU/L Alkaline Phosphatase 100 (42-121) IU/L Total Protein 7.4 (6.7-8.2) g/dl Albumin 3.6 (3.2-5.5) g/dl Globulin 3.8 Albumin/Globulin Ratio 0.95 Urine Color (YELLOW) Urine Appearance (CLEAR) Urine pH (5.0-9.0) Ur Specific [place] (1.005-1.030) Urine Protein (NEGATIVE) Urine Glucose (UA) (NEGATIVE) Urine Ketones (NEGATIVE) Urine Occult Blood (NEGATIVE) Urine Nitrite (NEGATIVE) Urine Bilirubin (NEGATIVE) Urine Urobilinogen (0.2-1.0) mg/dL Ur Leukocyte Esterase (NEGATIVE) Urine RBC /HPF Urine WBC (0-5/HPF) /HPF Ur Epithelial Cells (NOT SEEN) /HPF Urine Bacteria (0-FEW/HPF) /HPF Urine Mucus (NOT SEEN) /LPF Ur Random Creatinine mg/dL U Random Total Protein (0.00-9.9) mg/dL Protein/Creatinin Ratio Meds: Medications Generic Name Dose Route Start Last Admin Trade Name Freq PRN Reason Stop Dose Admin Acetaminophen 650 mg 03/02/19 01:34 Tylenol PO Q6H PRN Pain Labetalol HCl 100 mg 03/02/19 05:00 03/02/19 04:51 Normodyne PO Not Given BID@0500,1700 SUSSY Levothyroxine Sodium 125 mcg 03/02/19 06:00 Levothyroxine PO ACBREAKFAST SUSSY Discontinued Medications Generic Name Dose Route Start Last Admin Trade Name Freq PRN Reason Stop Dose Admin Acetaminophen 650 mg 03/01/19 23:52 03/01/19 23:56 Tylenol PO 03/01/19 23:53 650 mg NOW ONE Administration Hydralazine HCl 10 mg 03/01/19 23:34 03/01/19 23:42 Apresoline IVPUSH 03/01/19 23:35 10 mg ONETIME ONE Administration - Re-Assessments/Exams Free Text/Narrative Re-Assessment/Exam: 03/02/19 00:[address] Tabor Accepting for observation admission. Departure - Departure Time of Disposition: 00:33 Disposition: Refer to Observation Condition: Good Clinical Impression: Unspecified hypertension, condition or complication - My Orders Last 24 Hours: My Active Orders 03/01/19 22:56 CULTURE URINE [RM] Routine - Assessment/Plan Last 24 Hours: My Active Orders 03/01/19 22:56 CULTURE URINE [RM] Routine
[2019-03-02] MEDS ORDERED: Acetaminophen 325 MG Tab PO PRN (01:34)
--- NOTE | 2019-03-02 01:42 | PCM.LDHP ---
<Brittny Fall - Last Filed: 03/02/19 01:57> L&D History of Present Illness - General Date of Service: 03/02/19 Admit Problem/Dx: Admission Diagnosis/Problem Admission Diagnosis/Problem 03/02/19 01:36 Preeclampsia in post period Source of Information: Patient - History of Present Illness Introduction:: Patient presented to ER with the complaint of a headache and elevated blood pressure. She is a 24 yo F who delivered a healthy baby boy on 02/23/19 at 39w4d via vacuum assisted vaginal delivery. She was induced due to mild preeclampsia. Her post period was uncomplicated and blood pressures had normalized. She did no require any medication during that time and was not discharged on oral blood pressure medications. On the morning of 03/01, she woke up with a headache. She tried taking ibuprofen but her headache only worsened throughout the day. She did check in blood pressure in the evening and it was 139/110. She called the OB department who recommended she come in for evaluation. She denied any visual changed, abdominal pain, nausea, vomiting. Her bleeding is mild and continued to decrease. Her edema has been improving in both legs. Lab work up in the ER revealed normal labs except for UPCR of 0.34. A one time dose of 10 mg hydralazine IV was given in the ER as her pressures were in the 140s/90s. She was also given tylenol which improved the headache. She is pumping as her baby does not have a good latch. Pain Score: 5 - Related Data Allergies/Adverse Reactions: Allergies Allergy/AdvReac Type Severity Reaction Status Date / Time No Known Allergies Allergy Verified 03/02/19 01:11 Home Medications: Home Meds Ferrous Sulfate 1 tab PO BIDMEALS 01/03/19 [History] Vit with Ca/FA/Iron [ Plus Iron] 1 tab PO DAILY 01/03/19 [ History] Labetalol [Normodyne] 100 mg PO BID@0800,2000 tablet 03/02/19 [Rx] Levothyroxine 125 mcg PO ACBREAKFAST tablet 03/02/19 [Rx] Past Medical History - Past Health History Medical/Surgical History: Denies Medical/Surgical History HEENT History: Reports: Impaired Vision Cardiovascular History: Reports: None Respiratory History: Reports: None Gastrointestinal History: Reports: Other (See Below) Other Gastrointestinal History: nausea and vomiting with Genitourinary History: Reports: None [employer] History: Reports: Endometriosis, : 1 Para: 1 Other OB/BYN History: questionable Musculoskeletal History: Reports: Fracture, Other (See Below) Other Musculoskeletal History: fracture 2002 elbow Neurological History: Reports: None Psychiatric History: Reports: None Endocrine/Metabolic History: Reports: Hypothyroidism Hematologic History: Reports: None Immunologic History: Reports: None Oncologic (Cancer) History: Reports: None Dermatologic History: Reports: None - Infectious Disease History Infectious Disease History: Reports: None - Past Surgical History Head Surgeries/Procedures: Reports: None HEENT Surgical History: Reports: Adenoidectomy, Tonsillectomy GI Surgical History: Reports: None Social & Family History - Family History Family Medical History: Noncontributory - Tobacco Use Smoking Status *Q: Never Smoker Second Hand Smoke Exposure: No - Caffeine Use Caffeine Use: Reports: Soda - Recreational Drug Use Recreational Drug Use: No - Living Situation & Occupation Living situation: Reports: with Family Occupation: Employed H&P Review of Systems - Review of Systems: Review Of Systems: See Below General: Reports: No Symptoms HEENT: Reports: Headaches Pulmonary: Reports: No Symptoms Cardiovascular: Reports: No Symptoms Gastrointestinal: Reports: No Symptoms. Denies: Abdominal Pain, Diarrhea, Nausea, Vomiting Genitourinary: Reports: No Symptoms Musculoskeletal: Reports: No Symptoms Skin: Reports: No Symptoms Neurological: Denies: Dizziness, Numbness, Paresthesia, Weakness Hematologic/Lymphatic: Reports: No Symptoms L&D Exam - Exam Exam: See Below - Vital Signs Vital Signs: Last Vital Signs Temp 97.8 F 03/02/19 00:30 Pulse 85 03/02/19 00:30 Resp 20 03/02/19 00:30 BP 140/88 03/02/19 00:30 Pulse Ox 100 03/02/19 00:30 Weight: 110.132 kg - Exam General: Alert, Oriented, Cooperative HEENT: Conjunctiva Clear, Mucosa Moist & [place], Pupils Equal, Pupils Reactive Neck: Supple, Trachea Midline. No: Lymphadenopathy Lungs: Clear to Auscultation, Normal Respiratory Effort Cardiovascular: Regular Rate, Regular Rhythm, Normal S1, Normal S2 GI/Abdominal Exam: Normal Bowel Sounds, Soft, Non-Tender (uterus firm, non tender, 2 cm below umbilicus) Extremities: Non-Tender, Pedal Edema (minimal) Skin: Warm, Dry, Intact Neurological: Reflexes Equal Bilateral, Normal Tone - Patient Data Lab Results Last 24 hrs: Laboratory Results - last 24 hr 03/01/19 03/01/19 03/01/19 Range/Units 22:58 22:58 23:02 WBC 9.8 (5.0-10.0) 10^3/uL RBC 3.89 L (4.2-5.4) 10^6/uL Hgb 12.1 D (12.0-16.0) g/dL Hct 36.7 L (37.0-47.0) % MCV 94.3 (80-100) fL MCH 31.1 (27.0-34.0) pg MCHC 33.0 (33.0-35.0) g/dL Plt Count 392 D (150-450) 10^3/uL Neut % (Auto) 67.1 (42.2-75.2) % Lymph % (Auto) 24.3 (20.5-50.1) % [place] % (Auto) 6.8 (2-8) % Eos % (Auto) 1.6 (1.0-3.0) % Baso % (Auto) 0.2 (0.0-1.0) % Sodium (135-145) mmol/L Potassium (3.6-5.0) mmol/L Chloride (101-111) mmol/L Carbon Dioxide (21.0-31.0) mmol/L Anion Gap BUN (7-18) mg/dL Creatinine (0.6-1.3) mg/dL Est Cr Clr Drug Dosing mL/min Estimated GFR (MDRD) BUN/Creatinine Ratio Glucose (74-105) mg/dL Calcium (8.4-10.2) mg/dl Magnesium (1.8-2.5) mg/dL Total Bilirubin (0.2-1.0) mg/dL AST (10-42) IU/L ALT (10-60) IU/L Alkaline Phosphatase (42-121) IU/L Total Protein (6.7-8.2) g/dl Albumin (3.2-5.5) g/dl Globulin Albumin/Globulin Ratio Urine Color Dark yellow (YELLOW) Urine Appearance Slightly cloudy (CLEAR) Urine pH 6.0 (5.0-9.0) Ur Specific [place] 1.025 (1.005-1.030) Urine Protein 100 H (NEGATIVE) Urine Glucose (UA) Negative (NEGATIVE) Urine Ketones Negative (NEGATIVE) Urine Occult Blood Large H (NEGATIVE) Urine Nitrite Negative (NEGATIVE) Urine Bilirubin Negative (NEGATIVE) Urine Urobilinogen 1.0 (0.2-1.0) mg/dL Ur Leukocyte Esterase Small H (NEGATIVE) Urine RBC >100 H /HPF Urine WBC >100 H (0-5/HPF) /HPF Ur Epithelial Cells Few (NOT SEEN) /HPF Urine Bacteria Moderate H (0-FEW/HPF) /HPF Urine Mucus Few H (NOT SEEN) /LPF Ur Random Creatinine 176 mg/dL U Random Total Protein 60 H (0.00-9.9) mg/dL Protein/Creatinin Ratio 0.34 06//19 Range/Units 23:02 WBC (5.0-10.0) 10^3/uL RBC (4.2-5.4) 10^6/uL Hgb (12.0-16.0) g/dL Hct (37.0-47.0) % MCV (80-100) fL MCH (27.0-34.0) pg MCHC (33.0-35.0) g/dL Plt Count (150-450) 10^3/uL Neut % (Auto) (42.2-75.2) % Lymph % (Auto) (20.5-50.1) % [place] % (Auto) (2-8) % Eos % (Auto) (1.0-3.0) % Baso % (Auto) (0.0-1.0) % Sodium 137 (135-145) mmol/L Potassium 3.6 (3.6-5.0) mmol/L Chloride 107 (101-111) mmol/L Carbon Dioxide 19.0 L (21.0-31.0) mmol/L Anion Gap 14.6 BUN 16 (7-18) mg/dL Creatinine 0.7 (0.6-1.3) mg/dL Est Cr Clr Drug Dosing 107.01 mL/min Estimated GFR (MDRD) > 60 BUN/Creatinine Ratio 22.85 Glucose 83 (74-105) mg/dL Calcium 8.9 (8.4-10.2) mg/dl Magnesium 2.0 (1.8-2.5) mg/dL Total Bilirubin 0.4 (0.2-1.0) mg/dL AST 18 (10-42) IU/L ALT 24 (10-60) IU/L Alkaline Phosphatase 100 (42-121) IU/L Total Protein 7.4 (6.7-8.2) g/dl Albumin 3.6 (3.2-5.5) g/dl Globulin 3.8 Albumin/Globulin Ratio 0.95 Urine Color (YELLOW) Urine Appearance (CLEAR) Urine pH (5.0-9.0) Ur Specific [place] (1.005-1.030) Urine Protein (NEGATIVE) Urine Glucose (UA) (NEGATIVE) Urine Ketones (NEGATIVE) Urine Occult Blood (NEGATIVE) Urine Nitrite (NEGATIVE) Urine Bilirubin (NEGATIVE) Urine Urobilinogen (0.2-1.0) mg/dL Ur Leukocyte Esterase (NEGATIVE) Urine RBC /HPF Urine WBC (0-5/HPF) /HPF Ur Epithelial Cells (NOT SEEN) /HPF Urine Bacteria (0-FEW/HPF) /HPF Urine Mucus (NOT SEEN) /LPF Ur Random Creatinine mg/dL U Random Total Protein (0.00-9.9) mg/dL Protein/Creatinin Ratio Result Diagrams: 03/01/19 23:02 03/01/19 23:02 - Problem List (1) Preeclampsia in period SNOMED Code(s): 090776783, 810740897 ICD Code: O14.95 - UNSPECIFIED PRE-ECLAMPSIA, COMPLICATING THE PUERPERIUM Status: Acute Problem List Initiated/Reviewed/Updated: Yes Orders Last 24hrs: Active Orders 24 hr Category Date Time Status Intake and Output [RC] PRN Care 03/02/19 01:32 Ordered Oxygen Therapy [RC] PRN Care 03/02/19 01:32 Ordered Vital Signs [RC] Q2HR Care 03/02/19 01:32 Ordered Regular Diet [DIET] Diet 03/02/19 Breakfast Ordered CULTURE URINE [RM] Routine Lab 03/01/19 22:56 Received LACTATE DEHYDROGENASE,LDH [CHEM] Routine Lab 03/02/19 01:31 Ordered URIC ACID [CHEM] Routine Lab 03/02/19 01:31 Ordered Acetaminophen [Tylenol] Med 03/02/19 01:34 Ordered 650 mg PO Q6H PRN Labetalol [Normodyne] Med 03/02/19 05:00 Ordered 100 mg PO BID Deep Tendon Reflexes [WOMSER] Per Unit Routine Oth 03/02/19 01:32 Ordered Medication Orders Acetaminophen (Tylenol) 650 mg PO Q6H PRN PRN Reason: Pain Labetalol HCl (Normodyne) 100 mg PO BID SUSSY Assessment/Plan Comment:: Elevated blood pressure on admission along with UPCR of 0.34 consistent with preeclampsia. IV hydralazine did bring blood pressure down. Most recent blood pressure was 125/85. Will start oral labetalol at 100 mg BID and titrate as needed. Headache did improve with Tylenol so will order PRN. Will check blood pressures every hour unless they start to elevated again, then will go back to every 30 minutes. If next 2 blood pressures are normal, will check every 2 hours. LDH and uric acid added on as they weren't done in the ER but other [facility] labs were normal. Will keep watch of I&Os to make sure she had adequate urine output. Patient does have hypothyroidism and dose recently increased to 125 mcg. Reordered for morning. Will continue to monitor blood pressures and hopefully discharge home if they are controlled on oral medication. Assessment and plan discussed with Dr. Tabor and this note is being written for Dr. Tabor. <Silvia Taobr D - Last Filed: 03/06/19 12:05> L&D History of Present Illness - General Admit Problem/Dx: Patient Status Order with Admit Dx/Problem 03/02/19 08:49 Patient Status [ADT] Routine Admission Diagnosis/Problem Admission Diagnosis/Problem Preeclampsia in period L&D Exam - Vital Signs Vital Signs: Last Vital Signs Temp 97.9 F 03/02/19 08:26 Pulse 83 03/02/19 10:00 Resp 18 03/02/19 10:00 BP 122/75 03/02/19 10:00 Pulse Ox 100 03/02/19 10:00 - Patient Data Result Diagrams: 03/01/19 23:02 03/01/19 23:02 Assessment/Plan Comment:: Patient was personally seen and examined. I reviewed the noted above and agree with the assessment and plan. - Silvia Tabor MD
[2019-03-02] MEDS ORDERED: Labetalol 100 MG Tab PO SCH ×2 (05:00→09:00)
[2019-03-02] MEDS ORDERED: Levothyroxine 125 MCG Tab PO SCH (06:00)
--- NOTE | 2019-03-02 08:23 | PCM.PN ---
Addendum entered and electronically signed by Brittny Fall MD 03/02/19 08:52 : Most recent blood pressure was elevated, will start the labetalol at 100 mg BID and have her continue checking blood pressures at home. She will monitor for signs of hypotension and follow up with Dr. Dent. Original Note: <Brittny Fall - Last Filed: 03/02/19 08:48> - General Info Date of Service: 03/02/19 Admission Dx/Problem (Free Text): Admission Diagnosis/Problem Admission Diagnosis/Problem 03/02/19 01:36 Preeclampsia in post period - Review of Systems General: Reports: No Symptoms HEENT: Denies: Ear Pain, Headaches, Visual Changes Pulmonary: Denies: Shortness of Breath, Cough Cardiovascular: Denies: Edema Gastrointestinal: Denies: Abdominal Pain, Nausea, Vomiting Skin: Reports: No Symptoms Neurological: Denies: Dizziness, Headache, Weakness - Patient Data Vitals - Most Recent: Last Vital Signs Temp 97.8 F 03/02/19 00:30 Pulse 76 03/02/19 06:00 Resp 20 03/02/19 00:30 BP 129/87 03/02/19 06:00 Pulse Ox 100 03/02/19 00:30 Weight - Most Recent: 110.132 kg I&O - Last 24 Hours: Intake & Output 03/01/19 03/02/19 03/02/19 22:59 06:59 14:59 Output Total 600 Balance -600 Lab Results Last 24 Hours: Laboratory Results - last 24 hr 03/01/19 03/01/19 03/01/19 Range/Units 22:58 22:58 23:02 WBC 9.8 (5.0-10.0) 10^3/uL RBC 3.89 L (4.2-5.4) 10^6/uL Hgb 12.1 D (12.0-16.0) g/dL Hct 36.7 L (37.0-47.0) % MCV 94.3 (80-100) fL MCH 31.1 (27.0-34.0) pg MCHC 33.0 (33.0-35.0) g/dL Plt Count 392 D (150-450) 10^3/uL Neut % (Auto) 67.1 (42.2-75.2) % Lymph % (Auto) 24.3 (20.5-50.1) % [place] % (Auto) 6.8 (2-8) % Eos % (Auto) 1.6 (1.0-3.0) % Baso % (Auto) 0.2 (0.0-1.0) % Sodium (135-145) mmol/L Potassium (3.6-5.0) mmol/L Chloride (101-111) mmol/L Carbon Dioxide (21.0-31.0) mmol/L Anion Gap BUN (7-18) mg/dL Creatinine (0.6-1.3) mg/dL Est Cr Clr Drug Dosing mL/min Estimated GFR (MDRD) BUN/Creatinine Ratio Glucose (74-105) mg/dL Uric Acid (2.6-7.2) mg/dL Calcium (8.4-10.2) mg/dl Magnesium (1.8-2.5) mg/dL Total Bilirubin (0.2-1.0) mg/dL AST (10-42) IU/L ALT (10-60) IU/L Alkaline Phosphatase (42-121) IU/L Lactate Dehydrogenase (91-180) IU/L Total Protein (6.7-8.2) g/dl Albumin (3.2-5.5) g/dl Globulin Albumin/Globulin Ratio Urine Color Dark yellow (YELLOW) Urine Appearance Slightly cloudy (CLEAR) Urine pH 6.0 (5.0-9.0) Ur Specific [place] 1.025 (1.005-1.030) Urine Protein 100 H (NEGATIVE) Urine Glucose (UA) Negative (NEGATIVE) Urine Ketones Negative (NEGATIVE) Urine Occult Blood Large H (NEGATIVE) Urine Nitrite Negative (NEGATIVE) Urine Bilirubin Negative (NEGATIVE) Urine Urobilinogen 1.0 (0.2-1.0) mg/dL Ur Leukocyte Esterase Small H (NEGATIVE) Urine RBC >100 H /HPF Urine WBC >100 H (0-5/HPF) /HPF Ur Epithelial Cells Few (NOT SEEN) /HPF Urine Bacteria Moderate H (0-FEW/HPF) /HPF Urine Mucus Few H (NOT SEEN) /LPF Ur Random Creatinine 176 mg/dL U Random Total Protein 60 H (0.00-9.9) mg/dL Protein/Creatinin Ratio 0.34 06/26/19 06/27/19 Range/Units 23:02 05:40 WBC (5.0-10.0) 10^3/uL RBC (4.2-5.4) 10^6/uL Hgb (12.0-16.0) g/dL Hct (37.0-47.0) % MCV (80-100) fL MCH (27.0-34.0) pg MCHC (33.0-35.0) g/dL Plt Count (150-450) 10^3/uL Neut % (Auto) (42.2-75.2) % Lymph % (Auto) (20.5-50.1) % [place] % (Auto) (2-8) % Eos % (Auto) (1.0-3.0) % Baso % (Auto) (0.0-1.0) % Sodium 137 (135-145) mmol/L Potassium 3.6 (3.6-5.0) mmol/L Chloride 107 (101-111) mmol/L Carbon Dioxide 19.0 L (21.0-31.0) mmol/L Anion Gap 14.6 BUN 16 (7-18) mg/dL Creatinine 0.7 (0.6-1.3) mg/dL Est Cr Clr Drug Dosing 107.01 mL/min Estimated GFR (MDRD) > 60 BUN/Creatinine Ratio 22.85 Glucose 83 (74-105) mg/dL Uric Acid 5.3 (2.6-7.2) mg/dL Calcium 8.9 (8.4-10.2) mg/dl Magnesium 2.0 (1.8-2.5) mg/dL Total Bilirubin 0.4 (0.2-1.0) mg/dL AST 18 (10-42) IU/L ALT 24 (10-60) IU/L Alkaline Phosphatase 100 (42-121) IU/L Lactate Dehydrogenase 154 (91-180) IU/L Total Protein 7.4 (6.7-8.2) g/dl Albumin 3.6 (3.2-5.5) g/dl Globulin 3.8 Albumin/Globulin Ratio 0.95 Urine Color (YELLOW) Urine Appearance (CLEAR) Urine pH (5.0-9.0) Ur Specific [place] (1.005-1.030) Urine Protein (NEGATIVE) Urine Glucose (UA) (NEGATIVE) Urine Ketones (NEGATIVE) Urine Occult Blood (NEGATIVE) Urine Nitrite (NEGATIVE) Urine Bilirubin (NEGATIVE) Urine Urobilinogen (0.2-1.0) mg/dL Ur Leukocyte Esterase (NEGATIVE) Urine RBC /HPF Urine WBC (0-5/HPF) /HPF Ur Epithelial Cells (NOT SEEN) /HPF Urine Bacteria (0-FEW/HPF) /HPF Urine Mucus (NOT SEEN) /LPF Ur Random Creatinine mg/dL U Random Total Protein (0.00-9.9) mg/dL Protein/Creatinin Ratio Med Orders - Current: Current Medications Acetaminophen (Tylenol) 650 mg PO Q6H PRN PRN Reason: Pain Labetalol HCl (Normodyne) 100 mg PO BID@0500,1700 [facility] Last Admin: 03/02/19 04:51 Dose: Not Given Levothyroxine Sodium (Levothyroxine) 125 mcg PO ACBREAKFAST [facility] Last Admin: 03/02/19 05:44 Dose: 125 mcg Discontinued Medications Acetaminophen (Tylenol) 650 mg PO NOW ONE Stop: 03/01/19 23:53 Last Admin: 03/01/19 23:56 Dose: 650 mg Hydralazine HCl (Apresoline) 10 mg IVPUSH ONETIME ONE Stop: 03/01/19 23:35 Last Admin: 03/01/19 23:42 Dose: 10 mg - Exam General: Alert, Oriented, Cooperative HEENT: Pupils Equal, Pupils Reactive Neck: Supple Lungs: Clear to Auscultation, Normal Respiratory Effort Cardiovascular: Regular Rate, Regular Rhythm GI/Abdominal Exam: Normal Bowel Sounds, Soft, Non-Tender (uterus firm and nontender) Extremities: Pedal Edema (minimal, continues to improve) Skin: Warm, Dry Neurological: Reflexes Equal Bilateral - Problem List & Annotations (1) Preeclampsia in period SNOMED Code(s): 054550815, 872225911 Code(s): O14.95 - UNSPECIFIED PRE-ECLAMPSIA, COMPLICATING THE PUERPERIUM Status: Acute - Problem List Review Problem List Initiated/Reviewed/Updated: Yes - My Orders Last 24 Hours: My Active Orders 03/02/19 01:32 Intake and Output [RC] PRN Oxygen Therapy [RC] PRN Vital Signs [RC] Q2HR Deep Tendon Reflexes [WOMSER] Per Unit Routine 03/02/19 01:34 Acetaminophen [Tylenol] 650 mg PO Q6H PRN 03/02/19 02:21 Code Status [Resuscitation Status] Routine 03/02/19 02:22 Up ad Mei [RC] ASDIRECTED 03/02/19 05:00 Labetalol [Normodyne] 100 mg PO BID@0500,1700 03/02/19 05:05 Communication Order [RC] ROUTINE 03/02/19 06:00 Levothyroxine 125 mcg PO ACBREAKFAST 03/02/19 Breakfast Regular Diet [DIET] - Plan Plan:: Blood pressures normalized throughout the night averaging in the 120s/80s. She' s had no headache since arrival. Denies vision changes, abdominal pain, or increased swelling. PO Labetalol was ordered BID but held due to normal pressures. She feels great this morning and would like to go home. Of note, UPCR was 0.34 but contaminated with blood which could falsely elevate it. Likely discharge home today with close follow up regarding blood pressures. Urine output overnight was adequate. Assessment and plan discussed with Dr. Dent and this note is being written for Dr. Dent. <Cherry Hamilton - Last Filed: 03/02/19 21:50> - Patient Data Vitals - Most Recent: Last Vital Signs Temp 97.9 F 03/02/19 08:26 Pulse 83 03/02/19 10:00 Resp 18 03/02/19 10:00 BP 122/75 03/02/19 10:00 Pulse Ox 100 03/02/19 10:00 I&O - Last 24 Hours: Intake & Output 03/02/19 03/02/19 03/02/19 06:59 14:59 22:59 Output Total 600 Balance -600 Lab Results Last 24 Hours: Laboratory Results - last 24 hr 03/01/19 03/01/19 03/01/19 Range/Units 22:58 22:58 23:02 WBC 9.8 (5.0-10.0) 10^3/uL RBC 3.89 L (4.2-5.4) 10^6/uL Hgb 12.1 D (12.0-16.0) g/dL Hct 36.7 L (37.0-47.0) % MCV 94.3 (80-100) fL MCH 31.1 (27.0-34.0) pg MCHC 33.0 (33.0-35.0) g/dL Plt Count 392 D (150-450) 10^3/uL Neut % (Auto) 67.1 (42.2-75.2) % Lymph % (Auto) 24.3 (20.5-50.1) % [place] % (Auto) 6.8 (2-8) % Eos % (Auto) 1.6 (1.0-3.0) % Baso % (Auto) 0.2 (0.0-1.0) % Sodium (135-145) mmol/L Potassium (3.6-5.0) mmol/L Chloride (101-111) mmol/L Carbon Dioxide (21.0-31.0) mmol/L Anion Gap BUN (7-18) mg/dL Creatinine (0.6-1.3) mg/dL Est Cr Clr Drug Dosing mL/min Estimated GFR (MDRD) BUN/Creatinine Ratio Glucose (74-105) mg/dL Uric Acid (2.6-7.2) mg/dL Calcium (8.4-10.2) mg/dl Magnesium (1.8-2.5) mg/dL Total Bilirubin (0.2-1.0) mg/dL AST (10-42) IU/L ALT (10-60) IU/L Alkaline Phosphatase (42-121) IU/L Lactate Dehydrogenase (91-180) IU/L Total Protein (6.7-8.2) g/dl Albumin (3.2-5.5) g/dl Globulin Albumin/Globulin Ratio Urine Color Dark yellow (YELLOW) Urine Appearance Slightly cloudy (CLEAR) Urine pH 6.0 (5.0-9.0) Ur Specific [place] 1.025 (1.005-1.030) Urine Protein 100 H (NEGATIVE) Urine Glucose (UA) Negative (NEGATIVE) Urine Ketones Negative (NEGATIVE) Urine Occult Blood Large H (NEGATIVE) Urine Nitrite Negative (NEGATIVE) Urine Bilirubin Negative (NEGATIVE) Urine Urobilinogen 1.0 (0.2-1.0) mg/dL Ur Leukocyte Esterase Small H (NEGATIVE) Urine RBC >100 H /HPF Urine WBC >100 H (0-5/HPF) /HPF Ur Epithelial Cells Few (NOT SEEN) /HPF Urine Bacteria Moderate H (0-FEW/HPF) /HPF Urine Mucus Few H (NOT SEEN) /LPF Ur Random Creatinine 176 mg/dL U Random Total Protein 60 H (0.00-9.9) mg/dL Protein/Creatinin Ratio 0.34 03/01/19 03/02/19 Range/Units 23:02 05:40 WBC (5.0-10.0) 10^3/uL RBC (4.2-5.4) 10^6/uL Hgb (12.0-16.0) g/dL Hct (37.0-47.0) % MCV (80-100) fL MCH (27.0-34.0) pg MCHC (33.0-35.0) g/dL Plt Count (150-450) 10^3/uL Neut % (Auto) (42.2-75.2) % Lymph % (Auto) (20.5-50.1) % [place] % (Auto) (2-8) % Eos % (Auto) (1.0-3.0) % Baso % (Auto) (0.0-1.0) % Sodium 137 (135-145) mmol/L Potassium 3.6 (3.6-5.0) mmol/L Chloride 107 (101-111) mmol/L Carbon Dioxide 19.0 L (21.0-31.0) mmol/L Anion Gap 14.6 BUN 16 (7-18) mg/dL Creatinine 0.7 (0.6-1.3) mg/dL Est Cr Clr Drug Dosing 107.01 mL/min Estimated GFR (MDRD) > 60 BUN/Creatinine Ratio 22.85 Glucose 83 (74-105) mg/dL Uric Acid 5.3 (2.6-7.2) mg/dL Calcium 8.9 (8.4-10.2) mg/dl Magnesium 2.0 (1.8-2.5) mg/dL Total Bilirubin 0.4 (0.2-1.0) mg/dL AST 18 (10-42) IU/L ALT 24 (10-60) IU/L Alkaline Phosphatase 100 (42-121) IU/L Lactate Dehydrogenase 154 (91-180) IU/L Total Protein 7.4 (6.7-8.2) g/dl Albumin 3.6 (3.2-5.5) g/dl Globulin 3.8 Albumin/Globulin Ratio 0.95 Urine Color (YELLOW) Urine Appearance (CLEAR) Urine pH (5.0-9.0) Ur Specific [place] (1.005-1.030) Urine Protein (NEGATIVE) Urine Glucose (UA) (NEGATIVE) Urine Ketones (NEGATIVE) Urine Occult Blood (NEGATIVE) Urine Nitrite (NEGATIVE) Urine Bilirubin (NEGATIVE) Urine Urobilinogen (0.2-1.0) mg/dL Ur Leukocyte Esterase (NEGATIVE) Urine RBC /HPF Urine WBC (0-5/HPF) /HPF Ur Epithelial Cells (NOT SEEN) /HPF Urine Bacteria (0-FEW/HPF) /HPF Urine Mucus (NOT SEEN) /LPF Ur Random Creatinine mg/dL U Random Total Protein (0.00-9.9) mg/dL Protein/Creatinin Ratio Med Orders - Current: Current Medications Discontinued Medications Acetaminophen (Tylenol) 650 mg PO NOW ONE Stop: 03/01/19 23:53 Last Admin: 03/01/19 23:56 Dose: 650 mg Acetaminophen (Tylenol) 650 mg PO Q6H PRN PRN Reason: Pain Hydralazine HCl (Apresoline) 10 mg IVPUSH ONETIME ONE Stop: 03/01/19 23:35 Last Admin: 03/01/19 23:42 Dose: 10 mg Labetalol HCl (Normodyne) 100 mg PO BID@0500,1700 [facility] Last Admin: 03/02/19 04:51 Dose: Not Given Labetalol HCl (Normodyne) 100 mg PO BID@0800,2000 [facility] Last Admin: 03/02/19 09:00 Dose: 100 mg Levothyroxine Sodium (Levothyroxine) 125 mcg PO ACBREAKFAST [facility] Last Admin: 03/02/19 05:44 Dose: 125 mcg - My Orders Last 24 Hours: My Active Orders 03/02/19 09:58 Ready for Discharge [RC] PER UNIT ROUTINE - Plan Plan:: Patient seen and examined. Agree with note as scribed on my behalf by Dr. Fall , PGY3. -[facility] 03/02/19 3032.
[2019-03-02 11:11] VITALS: BP 136/91
== END 2019-03-02 11:00 | disposition home or self-care (01) ==
LOC: DL.ED 22:36 → UNDOADMOB 03-02 00:14 → DL.MS 03-02 00:14
PROVIDERS: ADMIT Family Medicine; ATTEND Family Medicine
DX: O14.05 Mild to moderate pre-eclampsia, complicating the puerperium (principal); R51 Headache; E03.9 Hypothyroidism, unspecified; H54.7 Unspecified visual loss; Z79.899 Other long term (current) drug therapy; Z98.890 Other specified postprocedural states
CPT/HCPCS: 36415; 80053; 81001; 82570; 83615; 83735; 84156; 84550; 85025; 87086; 96374; 99284; A9270; G0378; J0360

== ENCOUNTER 2021-01-18 21:43 | Emergency (ER) | payer OTHER ==
[2021-01-18 22:50] VITALS: BP 157/97; PULSE 88
[2021-01-19 01:42] LABS: ANION GAP 14.2 mEq/L (7-13); CHLORIDE,CL 103 mmol/L (98-107); SODIUM,NA 141 mmol/L (136-145)
--- NOTE | 2021-01-19 03:12 | EDM.PDOC ---
ED HPI GENERAL MEDICAL PROBLEM - General Chief Complaint: Skin Complaint Stated Complaint: SWELLING THE WHOLE RIGHT LEG. Time Seen by Provider: 01/19/21 01:16 Source of Information: Reports: Patient, RN, RN Notes Reviewed History Limitations: Reports: No Limitations - History of Present Illness INITIAL COMMENTS - FREE TEXT/NARRATIVE: Patient is a 26-year-old female who presents to ER with complaint of swelling to the right lower extremity. She states she was in [facility] and came home on Wednesday. On that day she noticed her right ankle was swelling. On she noticed swelling to the right thigh, increase in size, and some tenderness. Patient states she flew down to [place] and drove back on this trip. Denies any other illnesses. Denies eating any shellfish or anything new to her, denies any open areas on the skin on the right leg. Denies any recent fever, chills, nausea, vomiting, diarrhea, chest pains, shortness of breath. Patient states she does have sunburn as well. Onset: Gradual - Related Data Allergies Allergy/AdvReac Type Severity Reaction Status Date / Time No Known Allergies Allergy Verified 01/18/21 22:52 Home Meds: Home Meds Levothyroxine 125 mcg PO ACBREAKFAST tablet 03/02/19 [Rx] Past Medical History - Past Health History Medical/Surgical History: Denies Medical/Surgical History HEENT History: Reports: Impaired Vision Cardiovascular History: Reports: None Respiratory History: Reports: None Gastrointestinal History: Reports: Other (See Below) Other Gastrointestinal History: nausea and vomiting with Genitourinary History: Reports: None TECHNICAL TRANSLATOR History: Reports: Endometriosis, , Other (See Below) Other TECHNICAL TRANSLATOR History: preeclampsia Musculoskeletal History: Reports: Fracture, Other (See Below) Other Musculoskeletal History: fracture 2002 elbow Neurological History: Reports: None Psychiatric History: Reports: None Endocrine/Metabolic History: Reports: Hypothyroidism Hematologic History: Reports: Anemia Immunologic History: Reports: None Oncologic (Cancer) History: Reports: None Dermatologic History: Reports: None - Infectious Disease History Infectious Disease History: Reports: None - Past Surgical History Head Surgeries/Procedures: Reports: None HEENT Surgical History: Reports: Adenoidectomy, Tonsillectomy GI Surgical History: Reports: None Social & Family History - Family History Family Medical History: No Pertinent Family History - Tobacco Use Tobacco Use Status *Q: Never Tobacco User - Caffeine Use Caffeine Use: Reports: None - Recreational Drug Use Recreational Drug Use: No - Living Situation & Occupation Living situation: Reports: with Family Occupation: Employed ED ROS GENERAL - Review of Systems Review Of Systems: Comprehensive ROS is negative, except as noted in HPI. ED EXAM, SKIN/RASH Exam: See Below Exam Limited By: No Limitations General Appearance: Alert, WD/WN, No Apparent Distress, Obese Eye Exam: Bilateral Eye: EOMI, Normal Inspection Ears: Normal External Exam, Hearing Grossly Normal Nose: Normal Inspection Throat/Mouth: Normal Inspection, Normal Voice, No Airway Compromise Head: Atraumatic, Normocephalic Neck: Normal Inspection, Supple, Non-Tender, Full Range of Motion Respiratory/Chest: No Respiratory Distress, Lungs Clear, Normal Breath Sounds, No Accessory Muscle Use, Chest Non-Tender Cardiovascular: Normal Peripheral Pulses, Regular Rate, Rhythm, No Edema, No Gallop, No JVD, No Murmur, No Rub Peripheral Pulses: 2+: Radial (L), Radial (R), Dorsalis Pedis (L), Dorsalis Pedis (R) GI/Abdominal: Normal Bowel Sounds, Soft, Non-Tender (Female) Exam: Deferred Rectal (Female) Exam: Deferred Back Exam: Normal Inspection, Full Range of Motion, NT Extremities: Normal Range of Motion, Normal Capillary Refill, Other (Mild erythema, swelling, tenderness) Course - Vital Signs Last Recorded V/S: Last Vital Signs Temp 97.6 F 01/18/21 22:49 Pulse 88 01/18/21 22:49 Resp 16 01/18/21 22:49 BP 157/97 H 01/18/21 22:49 Pulse Ox 100 01/18/21 22:49 - Orders/Labs/Meds Orders: Active Orders 24 hr Category Date Time Status CULTURE BLOOD [BC] Stat Lab 01/19/21 01:20 Received Blood Culture x2 Reflex Set [OM.PC] Stat Oth 01/19/21 01:08 Ordered Labs: Laboratory Tests 01/19/21 01/19/21 01/19/21 Range/Units 01:20 01:20 01:20 WBC 6.8 (5.0-10.0) 10^3/uL RBC 4.19 L (4.2-5.4) 10^6/uL Hgb 12.2 (12.0-16.0) g/dL Hct 37.9 (37.0-47.0) % MCV 90.5 D (80-100) fL MCH 29.1 (27.0-34.0) pg MCHC 32.2 L (33.0-35.0) g/dL Plt Count 345 (150-450) 10^3/uL Neut % (Auto) 54.9 (42.2-75.2) % Lymph % (Auto) 35.1 (20.5-50.1) % Meigs % (Auto) 7.5 (2-8) % Eos % (Auto) 2.4 (1.0-3.0) % Baso % (Auto) 0.1 (0.0-1.0) % D-Dimer, Quantitative 184 (0-400) ng/mL Sodium 141 (136-145) mmol/L Potassium 4.2 (3.5-5.1) mmol/L Chloride 103 (98-107) mmol/L Carbon Dioxide 28 (21-32) mmol/L Anion Gap 14.2 H (7-13) mEq/L BUN 11 (7-18) mg/dL Creatinine 0.80 (0.55-1.02) mg/dL Est Cr Clr Drug Dosing 92.02 mL/min Estimated GFR (MDRD) > 60 BUN/Creatinine Ratio 13.8 (No establ ref range) Glucose 97 (70-99) mg/dL Lactic Acid (0.4-2.0) mmol/L Uric Acid (2.6-6.0) mg/dL Calcium 8.7 (8.5-10.1) mg/dL Total Bilirubin 0.3 (0.2-1.0) mg/dL AST 8 L (15-37) U/L ALT 19 (14-59) U/L Alkaline Phosphatase 84 (46-116) U/L C-Reactive Protein 1.6 H (0.0-0.9) mg/dL Total Protein 7.1 (6.4-8.2) g/dL Albumin 3.7 (3.4-5.0) g/dL Globulin 3.4 Albumin/Globulin Ratio 1.1 01/19/21 01/19/21 Range/Units 01:20 01:20 WBC (5.0-10.0) 10^3/uL RBC (4.2-5.4) 10^6/uL Hgb (12.0-16.0) g/dL Hct (37.0-47.0) % MCV (80-100) fL MCH (27.0-34.0) pg MCHC (33.0-35.0) g/dL Plt Count (150-450) 10^3/uL Neut % (Auto) (42.2-75.2) % Lymph % (Auto) (20.5-50.1) % Meigs % (Auto) (2-8) % Eos % (Auto) (1.0-3.0) % Baso % (Auto) (0.0-1.0) % D-Dimer, Quantitative (0-400) ng/mL Sodium (136-145) mmol/L Potassium (3.5-5.1) mmol/L Chloride (98-107) mmol/L Carbon Dioxide (21-32) mmol/L Anion Gap (7-13) mEq/L BUN (7-18) mg/dL Creatinine (0.55-1.02) mg/dL Est Cr Clr Drug Dosing mL/min Estimated GFR (MDRD) BUN/Creatinine Ratio (No establ ref range) Glucose (70-99) mg/dL Lactic Acid 0.5 (0.4-2.0) mmol/L Uric Acid 4.7 (2.6-6.0) mg/dL Calcium (8.5-10.1) mg/dL Total Bilirubin (0.2-1.0) mg/dL AST (15-37) U/L ALT (14-59) U/L Alkaline Phosphatase (46-116) U/L C-Reactive Protein (0.0-0.9) mg/dL Total Protein (6.4-8.2) g/dL Albumin (3.4-5.0) g/dL Globulin Albumin/Globulin Ratio - Re-Assessments/Exams Free Text/Narrative Re-Assessment/Exam: 01/19/21 06:34 Discussed labs and diagnostics with patient. Patient states understanding. Encourage patient to follow-up with her primary care provider for possible further investigation. 01/19/21 06:35 Right thigh =30.5 cm Left thigh =30 cm Right calf =19 cm Left calf =19.5 cm Right ankle =13 cm Left ankle =12 cm Departure - Departure Time of Disposition: 03:09 Disposition: Home, Self-Care 01 Condition: Good Clinical Impression: Right leg swelling, Right leg pain - Discharge Information *PRESCRIPTION DRUG MONITORING PROGRAM REVIEWED*: No *COPY OF PRESCRIPTION DRUG MONITORING REPORT IN PATIENT NAIF: No Instructions: Sunburn, Adult, [id number] Forms: ED Department Discharge Additional Instructions: Return to the ER with any worsening of problems Follow-up with your primary care provider next week for possibly further testing Elevate the right leg as tolerated May use Tylenol and/or ibuprofen as directed for pain Sepsis Event Note (ED) - Evaluation Sepsis Screening Result: No Definite Risk - Focused Exam Vital Signs: Vital Signs Temp Pulse Resp BP Pulse Ox 01/18/21 22:49 97.6 F 88 16 157/97 H 100 - My Orders Last 24 Hours: My Active Orders 01/19/21 01:08 Blood Culture x2 Reflex Set [OM.PC] Stat 01/19/21 01:20 CULTURE BLOOD [BC] Stat - Assessment/Plan Last 24 Hours: My Active Orders 01/19/21 01:08 Blood Culture x2 Reflex Set [OM.PC] Stat 01/19/21 01:20 CULTURE BLOOD [BC] Stat
== END 2021-01-19 03:15 | disposition home or self-care (01) ==
LOC: DL.ED 21:43
DX: R22.41 Localized swelling, mass and lump, right lower limb (principal); E03.9 Hypothyroidism, unspecified; Z79.899 Other long term (current) drug therapy
CPT/HCPCS: 36415; 80053; 83605; 84550; 85025; 85379; 86140; 87040; 99283

== ENCOUNTER 2022-12-26 21:03 | Emergency (ER) | payer BC ==
[2022-12-26] MEDS ORDERED: Ketorolac 30 MG/ML SDV IM ONE (22:00)
[2022-12-26 22:17] VITALS: BP 127/87; PULSE 75
== END 2022-12-26 22:28 | disposition home or self-care (01) ==
LOC: DL.ED 21:03
DX: S93.491A Sprain of other ligament of right ankle, initial encounter (principal); E03.9 Hypothyroidism, unspecified; Z79.899 Other long term (current) drug therapy; X50.1XXA Overexertion from prolonged static or awkward postures, initial encounter; Y92.009 Unspecified place in unspecified non-institutional (private) residence as the place of occurrence of the external cause
CPT/HCPCS: 73610; 96372; 99283; J1885

== ENCOUNTER 2023-03-22 12:02 | Emergency (ER) | payer BC ==
[2023-03-22] MEDS ORDERED: Sodium Chloride 0.9% 10 ML Syringe FLUSH PRN (12:18)
[2023-03-22 12:21] VITALS: BP 138/101; PULSE 130
[2023-03-22] MEDS ORDERED: Sodium Chloride 0.9% 1,000 ML IV ONE (12:55)
[2023-03-22 13:05] LABS: ALANINE AMINOTRANSFERASE,ALT 17 U/L (14-59); ALBUMIN 3.2 g/dL (3.4-5.0); ALKALINE PHOSPHATASE 125 U/L (46-116); ANION GAP 13.5 mEq/L (7-13); ASPARTATE AMNIOTRANSFERASE,AST 8 U/L (15-37); BILIRUBIN TOTAL 0.5 mg/dL (0.2-1.0); BLOOD UREA NITROGEN,BUN 10 mg/dL (7-18); BUN/CREATININE RATIO 12.5 (No establ ref range); C-REACTIVE PROTEIN 11.3 mg/dL (0.0-0.9); CALCIUM 8.6 mg/dL (8.5-10.1); CARBON DIOXIDE,CO2 27 mmol/L (21-32); CHLORIDE,CL 101 mmol/L (98-107); EST CRCL DRUG DOSING (CG) 94.21 mL/min; GLUCOSE RANDOM 109 mg/dL (70-99); POTASSIUM,K 3.5 mmol/L (3.5-5.1); PROTEIN TOTAL,TP 7.4 g/dL (6.4-8.2); SODIUM,NA 138 mmol/L (136-145)
[2023-03-22 13:08] LABS: LACTIC ACID 1.2 mmol/L (0.4-2.0)
[2023-03-22 13:09] LABS: A/G RATIO 0.76; ESTIMATED GFR 103 mL/min (>=60)
[2023-03-22 13:29] LABS: BASOPHILS PERCENT AUTO 0.3 % (0.0-1.0); EOSINOPHILS PERCENT AUTO 0.8 % (1.0-3.0); HEMATOCRIT 35.3 % (37.0-47.0); HEMOGLOBIN 11.2 g/dL (12.0-16.0); LYMPHOCYTES PERCENT AUTO 16.2 % (20.5-50.1); MEAN CORPUSCULAR HEMOGLOBIN 27.1 pg (27.0-34.0); MEAN CORPUSCULAR HGB CONC 31.7 g/dL (33.0-35.0); MEAN CORPUSCULAR VOLUME 85.5 fL (80-100); NEUTROPHILS PERCENT AUTO 75.7 % (42.2-75.2); PLATELET COUNT,PLT 458 10^3/uL (150-450); RED BLOOD CELL COUNT 4.13 10^6/uL (4.2-5.4); WHITE BLOOD CELL COUNT,WBC 11.2 10^3/uL (5.0-10.0)
== END 2023-03-22 14:17 | disposition home or self-care (01) ==
LOC: DL.ED 12:02
DX: G89.18 Other acute postprocedural pain (principal); R10.9 Unspecified abdominal pain; E03.9 Hypothyroidism, unspecified; E66.9 Obesity, unspecified; Z68.42 Body mass index [BMI] 45.0-49.9, adult; Z79.899 Other long term (current) drug therapy; Z98.890 Other specified postprocedural states
CPT/HCPCS: 36415; 80053; 83605; 84145; 85025; 86140; 87040; 87070; 87077; 87186; 99284; J7030; 99283; J3490

== ENCOUNTER 2024-01-17 13:34 | Emergency (ER) | payer BC ==
[2024-01-17 13:48] VITALS: BP 139/109; PULSE 104
[2024-01-17] MEDS: Bacitracin Oint 1 GM U/D Packet TOP ONE (13:59)
[2024-01-17] MEDS: Diphtheria,Pertussis(Acell),Tetanus Vaccine 0.5 ML Syringe IM ONE (13:59)
[2024-01-17] MEDS: Lidocaine 1% 5 ML VIAL INJECT ONE (13:59)
== END 2024-01-17 14:15 | disposition home or self-care (01) ==
LOC: DL.ED 13:34
DX: S61.412A Laceration without foreign body of left hand, initial encounter (principal); E03.9 Hypothyroidism, unspecified; E66.9 Obesity, unspecified; Z68.43 Body mass index [BMI] 50.0-59.9, adult; Z79.82 Long term (current) use of aspirin; Z79.899 Other long term (current) drug therapy; Z79.890 Hormone replacement therapy; Z23 Encounter for immunization; W26.8XXA Contact with other sharp object(s), not elsewhere classified, initial encounter; Y93.89 Activity, other specified
CPT/HCPCS: 12001; 90471; 90715; 99282; 99282-25; A9270-GY; J3490

== ENCOUNTER 2024-04-16 17:46 | Emergency (ER) | payer BC ==
[2024-04-16 18:08] VITALS: BP 141/105; PULSE 118
[2024-04-16 18:29] LABS: BASOPHILS PERCENT AUTO 0.2 % (0.0-1.0); EOSINOPHILS PERCENT AUTO 2.5 % (1.0-3.0); HEMATOCRIT 35.9 % (37.0-47.0); HEMOGLOBIN 11.4 g/dL (12.0-16.0); LYMPHOCYTES PERCENT AUTO 23.9 % (20.5-50.1); MEAN CORPUSCULAR HEMOGLOBIN 27.9 pg (27.0-34.0); MEAN CORPUSCULAR HGB CONC 31.8 g/dL (33.0-35.0); MONOCYTES PERCENT AUTO 3.6 % (2-8); NEUTROPHILS PERCENT AUTO 69.8 % (42.2-75.2); PLATELET COUNT,PLT 404 10^3/uL (150-450); RED BLOOD CELL COUNT 4.08 10^6/uL (4.2-5.4); WHITE BLOOD CELL COUNT,WBC 8.5 10^3/uL (5.0-10.0)
[2024-04-16] MEDS: Sodium Chloride 0.9% 10 ML Syringe FLUSH PRN (18:33)
[2024-04-16 18:57] LABS: ANION GAP 15.6 mEq/L (7-13); CALCIUM 8.8 mg/dL (8.5-10.1); CREATININE 0.82 mg/dL (0.55-1.02); EST CRCL DRUG DOSING (CG) 91.09 mL/min; POTASSIUM,K 3.6 mmol/L (3.5-5.1)
[2024-04-16 19:02] LABS: MAGNESIUM 1.6 mg/dL (1.8-2.4)
[2024-04-16] MEDS: Magnesium Sulfate/Water 2 GM in Premix Bag 1 BAG IV ONE (19:58)
[2024-04-16 20:10] LABS: A/G RATIO 0.9; ALBUMIN 3.4 g/dL (3.4-5.0); BILIRUBIN TOTAL 0.2 mg/dL (0.2-1.0); BUN/CREATININE RATIO 11.8 (No establ ref range); CREATININE 0.85 mg/dL (0.55-1.02); EST CRCL DRUG DOSING (CG) 87.87 mL/min; PROTEIN TOTAL,TP 7.1 g/dL (6.4-8.2)
== END 2024-04-16 22:46 | disposition home or self-care (01) ==
LOC: DL.ED 17:46
DX: R07.9 Chest pain, unspecified (principal); E83.42 Hypomagnesemia; E66.9 Obesity, unspecified; E03.9 Hypothyroidism, unspecified; Z79.82 Long term (current) use of aspirin; Z79.890 Hormone replacement therapy; Z79.899 Other long term (current) drug therapy; Z68.43 Body mass index [BMI] 50.0-59.9, adult
CPT/HCPCS: 36415; 71046; 80048; 80053; 81025; 83735; 84443; 84484; 85025; 85379; 87804; 93005; 96365; 96366; 99285-25; J3475; J3490; U0002

== ENCOUNTER 2024-07-05 18:09 | Emergency (ER) | payer BC ==
[2024-07-05] MEDS ORDERED: Sodium Chloride 0.9% 10 ML Syringe FLUSH PRN (18:24)
[2024-07-05 19:51] LABS: BASOPHILS PERCENT AUTO 0.4 % (0.0-1.0); EOSINOPHILS PERCENT AUTO 2.6 % (1.0-3.0); HEMATOCRIT 36.7 % (37.0-47.0); HEMOGLOBIN 11.5 g/dL (12.0-16.0); LYMPHOCYTES PERCENT AUTO 28.6 % (20.5-50.1); MEAN CORPUSCULAR HEMOGLOBIN 27.2 pg (27.0-34.0); MEAN CORPUSCULAR HGB CONC 31.3 g/dL (33.0-35.0); MEAN CORPUSCULAR VOLUME 86.8 fL (80-100); MONOCYTES PERCENT AUTO 6.2 % (2-8); NEUTROPHILS PERCENT AUTO 62.2 % (42.2-75.2); PLATELET COUNT,PLT 469 10^3/uL (150-450); RED BLOOD CELL COUNT 4.23 10^6/uL (4.2-5.4); WHITE BLOOD CELL COUNT,WBC 10.1 10^3/uL (5.0-10.0)
[2024-07-05 20:08] LABS: PROTHROMBIN TIME 10.1 SEC (9.0-12.0); PTT,PARTIAL THROMBOPLSTIN TIME 24.3 SEC (22.0-34.0)
[2024-07-05 20:09] LABS: A/G RATIO 0.9; ALBUMIN 3.6 g/dL (3.4-5.0); ANION GAP 12.5 mEq/L (7-13); BILIRUBIN TOTAL 0.1 mg/dL (0.2-1.0); BUN/CREATININE RATIO 15.3 (No establ ref range); C-REACTIVE PROTEIN 1.65 ng/dL (<=0.50); CREATININE 0.85 mg/dL (0.55-1.02); EST CRCL DRUG DOSING (CG) 87.87 mL/min; MAGNESIUM 1.7 mg/dL (1.8-2.4); POTASSIUM,K 3.5 mmol/L (3.5-5.1); PROTEIN TOTAL,TP 7.6 g/dL (6.4-8.2)
[2024-07-05 20:42] LABS: APPEARANCE,URINE SLIGHTLY CLOUDY (CLEAR); BILIRUBIN,URINE NEGATIVE (NEGATIVE); COLOR,URINE YELLOW (YELLOW); GLUCOSE,URINE NEGATIVE (NEGATIVE); KETONES,URINE NEGATIVE (NEGATIVE); LEUKOCYTE ESTERASE,URINE TRACE (NEGATIVE); NITRITE,URINE NEGATIVE (NEGATIVE); OCCULT BLOOD,URINE NEGATIVE (NEGATIVE); PH,URINE 5.5 (5.0-9.0); PROTEIN,URINE NEGATIVE (NEGATIVE); UROBILINOGEN,URINE 0.2 mg/dL (0.2-1.0)
[2024-07-05 20:45] LABS: AMPHETAMINES,URINE NEGATIVE (NEGATIVE); BARBITURATES,URINE NEGATIVE (NEGATIVE); BENZODIAZEPINE,URINE NEGATIVE (NEGATIVE); MDMA (ECSTASY), URINE NEGATIVE (NEGATIVE); METHADONE,URINE NEGATIVE (NEGATIVE); METHAMPHETAMINES,URINE NEGATIVE (NEGATIVE); OPIATES,URINE NEGATIVE (NEGATIVE); OXYCODONE,URINE NEGATIVE (NEGATIVE); PHENCYCLIDINE,URINE NEGATIVE (NEGATIVE); TCA,URINE NEGATIVE (NEGATIVE)
[2024-07-05] MEDS: Iopamidol 612 MG/ML 100 ML Bottle IVPUSH ONE (20:47)
[2024-07-05 20:52] LABS: AMORPHOUS SEDIMENT,URINE FEW /HPF (NOT SEEN); BACTERIA,URINE FEW /HPF (0-FEW/HPF); EPITHELIAL CELLS,URINE MANY /HPF (NOT SEEN); MUCUS,URINE FEW /LPF (NOT SEEN); RBC,URINE 0-5 /HPF (0-5)
== END 2024-07-05 22:14 | disposition home or self-care (01) ==
LOC: DL.ED 18:09
DX: K57.30 Diverticulosis of large intestine without perforation or abscess without bleeding (principal); K59.00 Constipation, unspecified; E03.9 Hypothyroidism, unspecified; E66.9 Obesity, unspecified; Z79.82 Long term (current) use of aspirin; Z79.899 Other long term (current) drug therapy
CPT/HCPCS: 36415; 74177; 80053; 80305; 81001; 81025; 83605; 83690; 83735; 85025; 85610; 85730; 86140; 87040; 87086; 99284; Q9967